=== PATIENT | male | born 1960 | race Caucasian/White ===

== ENCOUNTER → 2018-12-05 | Day surgery (SDC) | payer OTHER ==
[~2018-12-05] MED LIST: FENTANYL CITRATE/PF 100MCG/2 ML INJ ONE; HYOSCYAMINE SULFATE 0.5 MG/ML INJ ONE; METOCLOPRAMIDE HCL 10 MG/2ML VIAL ONE; MIDAZOLAM HCL 2 MG/2 ML VIAL ONE; PROPOFOL IV EMULSION 10 MG/ML 20 ML VIAL ONE; PROPOFOL IV EMULSION 10 MG/ML 50 ML VIAL ONE
[2018-12-05 12:20] VITALS: BP 129/91
--- NOTE | 2018-12-05 14:04 | Operative Report ---
DATE OF PROCEDURE: 12/05/2018 SURGEON: Kem Pathak MD PROCEDURES: Esophagogastroduodenoscopy with biopsies and colonoscopy with polypectomy and biopsies. INDICATIONS FOR EGD: History of heartburn, indigestion, bloating. INDICATIONS FOR COLONOSCOPY: Surveillance colonoscopy, personal history of colon polyps. MEDICATIONS: The patient was done under MAC, please see anesthesiologist's note. PROCEDURE IN DETAIL: With the patient in left lateral decubitus position, a flexible fiberoptic Olympus gastroscope was introduced into the esophagus under direct visualization without any difficulty. There was some patchy erythema noted in distal esophagus. An erosion was noted in the distal esophagus. The scope was then advanced with ease into the stomach traversing a small hiatal hernia. Mucosa overlying the antrum and the body revealed some patchy erythema and low-grade to moderate edema and biopsies were obtained, sent to stain for H pylori. The pylorus was intubated with ease and the scope was advanced all the way to the second portion of the duodenum. The scope was then withdrawn slowly, mucosa overlying the proximal second portion and the duodenal bulb grossly appeared to be within normal limits. Biopsies were obtained to rule out sprue. The scope was then withdrawn back into the stomach and retroflexed. Mucosa overlying the fundus appeared to be within normal limits. The previously described hiatal hernia was also noted in the retroflexed position. The scope was then straightened out, it was subsequently withdrawn. The patient tolerated the procedure well. IMPRESSION: 1. Distal erosive esophagitis. 2. Small hiatal hernia. 3. Gastritis, biopsied. Biopsies sent to stain for Helicobacter pylori. 4. Rule out sprue. PLAN: Follow up histology. Initiate Protonix 40 mg one p.o. q.a.m. a.c. PROCEDURE IN DETAIL: The patient was then turned around after adequate lubrication of the anal canal, flexible fiberoptic Olympus colonoscope was inserted into the rectum with ease and advanced all the way to the cecum. The scope was then withdrawn slowly. Mucosa overlying the cecum appeared to be within normal limits. One polyp was hot biopsied, one polyp was snared from the ascending colon. Polypectomy site was hemoclipped. The rest of the ascending and the transverse appeared to be within normal limits. One polyp was snared from the descending colon. Diverticular disease was noted in the distal descending and the sigmoid colon. Three polyps were hot biopsied from the sigmoid. The rectum appeared to be within normal limits. The scope was then retroflexed into the distal rectum and small internal hemorrhoids were noted, none of which was actively bleeding. The scope was then straightened out. The scope was subsequently withdrawn. The patient tolerated the procedure well. IMPRESSION: 1. Ascending colon polyp x2, one snared, one hot biopsied, polypectomy site hemoclipped. 2. Descending colon polyp, snared. 3. Diverticulosis. 4. Segmental colitis, mild, sigmoid colon, biopsied (not mentioned in the body of the report). 5. Sigmoid colon polyps x3, hot biopsied. 6. Internal hemorrhoids, none actively bleeding. PLAN: Follow up histology. Initiate high-fiber, low-fat diet. Initiate high-fiber supplement. The patient might benefit from a followup colonoscopy in 3 years. Kem Pathak MD [facility] [place]/[facility] /[id number] cc: Jordin Hernandez MD
--- OUTSIDE RECORDS SUMMARY | 2018-12-06 09:20 | XMS REPORT | Summary of Care ---
Author Author [facility] Organization [facility] Address Unknown Phone Unavailable Encounter VAHID Raza(ASHWINI) [id number] Date(s): 04/02/15 - 04/02/15 [id number] [place] [address]- Discharge Disposition: Home Attending Physician: Pedro Churchill MD Admitting Physician: Pedro Churchill MD Referring Physician: Pedro Churchill MD Vital Signs 1 2 3 Most recent to oldest [Reference Range]: 172.72 cm (03/25/15 4:07 PM) 172.72 cm (03/25/15 3:50 PM) Height 1 2 3 Most recent to oldest [Reference Range]: 98.1 DegF (04/03/15 8:00 AM) 98.1 DegF (04/03/15 5:10 AM) 98.2 DegF (04/03/15 12:39 AM) Temperature Oral [96.4-99.1 DegF] 1 2 3 Most recent to oldest [Reference Range]: 108/70 mmHg (04/03/15 8:00 AM) 110/67 mmHg (04/03/15 5:10 AM) 103/64 mmHg (04/03/15 12:39 AM) Blood Pressure [90-140/60-90 mmHg] 1 2 3 Most recent to oldest [Reference Range]: 16 BRMIN (04/03/15 8:00 AM) 18 BRMIN (04/03/15 5:10 AM) 12 BRMIN *LOW* (04/03/15 4:38 AM) Respiratory Rate [14-20 BRMIN] 1 2 3 Most recent to oldest [Reference Range]: 66 bpm (04/03/15 8:00 AM) 71 bpm (04/03/15 5:10 AM) 68 bpm (04/03/15 12:39 AM) Peripheral Pulse Rate [60-100 bpm] 1 2 3 Most recent to oldest [Reference Range]: 85.455 kg (03/25/15 4:07 PM) 85.455 kg (03/25/15 3:50 PM) Weight 1 2 3 Most recent to oldest [Reference Range]: 28.65 m2 (03/25/15 4:07 PM) 28.65 m2 (03/25/15 3:50 PM) Body Mass Index Problem List Condition Effective Dates Status Health Status Informant Localized Active osteoarthritis(Confi rmed)1 1hip - right. Allergies, Adverse Reactions, Alerts Substance Reaction Severity Status NKDA Active Medications 1/2 NS 1,000 mL 1,000 mL, Rate: 75 ml/hr, Infuse over: 13.3 hr, Route: IV, Dosing Weight 85.455 kg, Total Volume: 1,000, Start date: 04/02/15 6:39:00, Duration: 30 day, Stop da te: 05/02/15 6:38:00 Start Date: 04/02/15 Stop Date: 04/03/15 Status: Discontinued acetaminophen 1,000 mg, 100 mL, Route: IVPB, Drug form: INJ, Q6H, Dosing Weight 85.455, kg, St art date: 04/02/15 15:30:00, Stop date: 04/03/15 9:30:00 Notes: Infuse over 15 minutesDo not exceed 4gm/day of acetaminophen MEDICAT ION WASTE Product Size: 1000 mgProduct Wasted: ___ mg Start Date: 04/02/15 Stop Date: 04/03/15 Status: Completed acetaminophen 1,000 mg, 2 tab, Route: PO, Drug form: TAB, Q6H, PRN Pain 1-3/Temp > 100.4 F, Start date: 04/03/15 8:30:00, Duration: 30 day, Stop date: 05/03/15 8:29:00 Notes: Max acetaminophen 4000 mg/day (4 gm/day). (Same as: Tylenol Extra Streng th) Start Date: 04/03/15 Stop Date: 04/03/15 Status: Discontinued Al hydroxide/Mg hydroxide/simethicone 200 mg-200 mg-20 mg/5 mL oral suspension 30 mL, Route: PO, Drug Form: SUSP, Dosing Weight 85.455, kg, Q4H, PRN Indigestio n, Start date: 04/02/15 6:39:00, Duration: 30 day, Stop date: 05/02/15 6:38:00 Notes: (aluminum hydroxide-magnesium hyd-simethicone [phone]/5ml 30 ml ud S US) Start Date: 04/02/15 Stop Date: 04/03/15 Status: Discontinued albuterol 0.083% inhalation solution 2.49 mg, 3 mL, Route: NEB, Drug form: SOLN, PRN, Dosing Weight 85.455, kg, PRN R espiratory Protocol, Start date: 04/02/15 10:27:00, Duration: 30 day, Stop date: 05/02/15 10:26:00 Notes: SEE RT DOCUMENTATION (Same as: Janelle) Start Date: 04/02/15 Stop Date: 04/02/15 Status: Discontinued aspirin 325 mg, Route: PO, Q12H, Dosing Weight 85.455, kg, For patients with risk of ble eding, Start date: 04/02/15 10:39:00, Duration: 30 day, Stop date: 05/02/15 9:00 :00 Start Date: 04/02/15 Stop Date: 04/02/15 Status: Deleted aspirin 325 mg tablet, enteric coated 325 mg=1 tab, PO, Q12H, 0 Refill(s) Start Date: 04/03/15 Status: Ordered aspirin 325 mg tablet, enteric coated 325 mg, 1 tab, Route: PO, Drug form: ECTAB, Q12H, Dosing Weight 85.455, kg, Star t date: 04/02/15 12:05:00, Duration: 30 day, Stop date: 05/02/15 9:00:00 Notes: (Do Not Crush) Do not crush or chew. Start Date: 04/02/15 Stop Date: 04/03/15 Status: Discontinued atropine 0.2 mg, 0.5 mL, Route: IVP, Drug form: INJ, Q5Min, Dosing Weight 85.455, kg, PRN Other -See Comment, as needed; for symptomatic pulse rate < 80% of mean 50 BPM, Start date: 04/02/15 10:27:00, Duration: 30 day, Stop date: 05/02/15 10:26:00 Notes: MEDICATION WASTE Product Size: 0.4 mgProduct Wasted: ___ mg Start Date: 04/02/15 Stop Date: 04/02/15 Status: Discontinued BD Normal Saline Flush 10 mL, Route: IV, Drug Form: INJ, PRN, PRN Line Flush, Start date: 04/02/15 7:57 :00, Duration: 30 day, Stop date: 05/02/15 7:56:00 Notes: (Same as: BD Posiflush) Start Date: 04/02/15 Stop Date: 04/03/15 Status: Discontinued BD Normal Saline Flush 5 mL, Route: IV, Drug Form: INJ, PRN, PRN Line Flush, Start date: 04/02/15 7:57: 00, Duration: 30 day, Stop date: 05/02/15 7:56:00 Notes: (Same as: BD Posiflush) Start Date: 04/02/15 Stop Date: 04/03/15 Status: Discontinued ceFAZolin 2 gm, 100 mL, Route: IVPB, Drug form: INJ, PRE OP, Start date: 04/02/15 6:30:00, Stop date: 04/02/15 23:00:00 Notes: Same as: Ancef Start Date: 04/02/15 Stop Date: 04/02/15 Status: Completed ceFAZolin (SCIP) + Sodium Chloride 0.9% IV 100 mL 1 gm, Route: IVPB, Q6H, Dosing Weight 85.455, kg, Start date: 04/02/15 15:30:00, Duration: 3 doses or times, Stop date: 04/03/15 3:30:00 Notes: (Same As: Ancef, Raulfzol) MEDICATION WASTE Product Size: 1000 mgP roduct Wasted: ___ mg Start Date: 04/02/15 Stop Date: 04/03/15 Status: Completed CeleBREX 400 mg, 2 cap, Route: PO, Drug form: CAP, PRE OP, Start date: 04/02/15 6:30:00, Stop date: 04/02/15 23:00:00 Notes: NSAID. Please check indication. Not for seizure. (Same As: CeleBREX) Start Date: 04/02/15 Stop Date: 04/02/15 Status: Completed CeleBREX 200 mg, 1 cap, Route: PO, Drug form: CAP, Q12H, Start date: 04/03/15 12:00:00, D uration: 30 day, Stop date: 05/03/15 0:00:00 Notes: NSAID. Please check indication. Not for seizure. (Same As: CeleBREX) Start Date: 04/03/15 Stop Date: 04/03/15 Status: Discontinued celecoxib 200 mg, Route: PO, C42Hcth, Dosing Weight 85.455, kg, Start date: 04/02/15 7:00: 00, Duration: 30 day, Stop date: 05/01/15 19:00:00 Start Date: 04/02/15 Stop Date: 04/02/15 Status: Deleted celecoxib 200 mg oral capsule 200 mg=1 cap, PO, Q12H, 0 Refill(s) Start Date: 04/03/15 Stop Date: 04/03/15 Status: Discontinued diphenhydrAMINE 12.5 mg, 0.25 mL, Route: IVP, Drug form: INJ, Q6H, Dosing Weight 85.455, kg, PRN Itching, Start date: 04/02/15 10:27:00, Duration: 30 day, Stop date: 05/02/15 1 0:26:00 Notes: (Same as: Benadryl) Start Date: 04/02/15 Stop Date: 04/02/15 Status: Discontinued docusate 100 mg, 1 cap, Route: PO, Drug form: CAP, BID, Dosing Weight 85.455, kg, Start d ate: 04/02/15 17:00:00, Duration: 30 day, Stop date: 05/02/15 9:00:00 Notes: (Same as: Colace) (Do Not Crush) Start Date: 04/02/15 Stop Date: 04/03/15 Status: Discontinued esmolol IV Push 10 mg, 1 mL, Route: IVP, Drug form: INJ, Q5Min, Dosing Weight 85.455, kg, PRN Ot her -See Comment, Start date: 04/02/15 10:27:00, Duration: 5 doses or times, Sto p date: Limited # of times Notes: (Same as: Brevibloc) Start Date: 04/02/15 Stop Date: 04/02/15 Status: Discontinued flumazenil 0.2 mg, 2 mL, Route: IVP, Drug form: INJ, PRN, Dosing Weight 85.455, kg, PRN Curtis zodiazepine Reversal, Initial dose, Start date: 04/02/15 10:27:00, Duration: 30 day, Stop date: 05/02/15 10:26:00 Notes: (Same as: Romazicon) Start Date: 04/02/15 Stop Date: 04/02/15 Status: Discontinued gabapentin 300 mg, 1 cap, Route: PO, Drug form: CAP, Q8H, Dosing Weight 85.455, kg, Start d ate: 04/02/15 16:00:00, Duration: 30 day, Stop date: 05/02/15 8:00:00 Notes: (Same as: Neurontin) Start Date: 04/02/15 Stop Date: 04/03/15 Status: Discontinued gabapentin 300 mg oral capsule 300 mg=1 cap, PO, Bedtime, # 21 cap, 0 Refill(s), other Start Date: 04/03/15 Status: Ordered glycopyrrolate 0.2 mg, 1 mL, Route: IVP, Drug form: INJ, Q5Min, Dosing Weight 85.455, kg, PRN B radycardia, Start date: 04/02/15 10:27:00, Duration: 3 doses or times, Stop date : Limited # of times Notes: (Same as: Valentina) Start Date: 04/02/15 Stop Date: 04/02/15 Status: Discontinued hydromorphone 0.3 mg, 0.15 mL, Route: IVP, Drug form: INJ, Q4H, Dosing Weight 85.455, kg, PRN Pain Score 7-10, Start date: 04/02/15 6:39:00, Duration: 30 day, Stop date: 04/16 02/27 6:38:00 Notes: (Same as: Dilaudid) Start Date: 04/02/15 Stop Date: 04/03/15 Status: Discontinued hydromorphone 0.5 mg, 0.25 mL, Route: IVP, Drug form: INJ, Q5Min, Dosing Weight 85.455, kg, MI N Pain Score 7-10, Start date: 04/02/15 10:27:00, Duration: 4 doses or times, St op date: Limited # of times Notes: (Same as: Dilaudid) Start Date: 04/02/15 Stop Date: 04/02/15 Status: Discontinued hydrOXYzine 25 mg, 1 tab, Route: PO, Drug form: TAB, Q6H, Dosing Weight 85.455, kg, PRN Itch ing, Start date: 04/02/15 6:39:00, Duration: 30 day, Stop date: 05/02/15 6:38:00 Notes: (Same as: Atarax) Avoid alcohol. Start Date: 04/02/15 Stop Date: 04/03/15 Status: Discontinued ketOROLAC 30 mg, 1 mL, Route: IVP, Drug form: INJ, Q6H, Dosing Weight 85.455, kg, Start da te: 04/02/15 12:05:00, Duration: 4 doses or times, Stop date: 04/03/15 6:00:00 Notes: (Same as:Toradol) IV bolus must be given >15 seconds. Give IM administration slowly and deeply into the muscle.Not for use > 4 days MEDICATION WASTE Product Size: 30 mgProduct Wasted: ___ mg Start Date: 04/02/15 Stop Date: 04/03/15 Status: Completed meloxicam 15 mg oral tablet 15 mg=1 tab, PO, Daily, # 30 tab, 0 Refill(s), other Start Date: 04/03/15 Status: Ordered methocarbamol 1,000 mg, 2 tab, Route: PO, Drug form: TAB, Q8H, Dosing Weight 85.455, kg, PRN M uscle Spasms, Start date: 04/02/15 6:39:00, Duration: 30 day, Stop date: 5 6:38:00 Notes: (Same as:Robaxin) Start Date: 04/02/15 Stop Date: 04/03/15 Status: Discontinued morphine Sulfate 2 mg, 0.2 mL, Route: IVP, Drug form: INJ, Q5Min, Dosing Weight 85.455, kg, PRN P ain Score 4-6, Start date: 04/02/15 10:27:00, Duration: 5 doses or times, Stop d ate: Limited # of times Notes: (Same as:MORPhine Sulfate) Start Date: 04/02/15 Stop Date: 04/02/15 Status: Discontinued mupirocin topical 1 appl, Route: NASAL, Q12H, Drug form: OINT, Start date: 04/02/15 21:00:00, Dura tion: 30 day, Stop date: 05/02/15 9:00:00 Start Date: 04/02/15 Stop Date: 04/03/15 Status: Discontinued naloxone 0.04 mg, 0.1 mL, Route: IVP, Drug form: INJ, Q2MIN, Dosing Weight 85.455, kg, MI N Narcotic Reversal, Start date: 04/02/15 10:27:00, Duration: 8 doses or times, Stop date: Limited # of times Notes: Same as Narcan Start Date: 04/02/15 Stop Date: 04/02/15 Status: Discontinued Neurontin 300 mg, 1 cap, Route: PO, Drug form: CAP, PRE OP, Start date: 04/02/15 6:30:00, Stop date: 04/02/15 23:00:00 Notes: (Same as: Neurontin) Start Date: 04/02/15 Stop Date: 04/02/15 Status: Completed Larue 10/325 oral tablet 1-2 tab, PO, Q4-6H, PRN Pain, X 14 day, # 90 tab, 0 Refill(s), other Start Date: 04/03/15 Stop Date: 04/17/15 Status: Ordered Ofirmev 1,000 mg, 100 mL, Route: IV, PRE OP, Start date: 04/02/15 6:30:00, Stop date: 23:00:00 Notes: Infuse over 15 minutesDo not exceed 4gm/day of acetaminophen MEDICAT ION WASTE Product Size: 1000 mgProduct Wasted: ___ mg Start Date: 04/02/15 Stop Date: 04/03/15 Status: Discontinued ondansetron 4 mg, 2 mL, Route: IVP, Drug form: INJ, Q8H, Dosing Weight 85.455, kg, PRN Nause a & Vomiting, Start date: 04/02/15 6:39:00, Duration: 30 day, Stop date: 05/02/15 6:38:00 Notes: (Same as: Isidro) MEDICATION WASTE Product Size: 4 mgProduct Was sofiya: ___ mg Start Date: 04/02/15 Stop Date: 04/03/15 Status: Discontinued ondansetron 4 mg, 2 mL, Route: IVP, Drug form: INJ, ONCE, Dosing Weight 85.455, kg, PRN Naus ea & Vomiting, Start date: 04/02/15 10:27:00 Notes: (Same as: Isidro) MEDICATION WASTE Product Size: 4 mgProduct Was sofiya: ___ mg Start Date: 04/02/15 Stop Date: 04/02/15 Status: Discontinued oxyCODONE 5 mg immediate release 10 mg, 2 tab, Route: PO, Drug form: TAB, Q4H, Dosing Weight 85.455, kg, PRN Pain Score 7-10, Start date: 04/02/15 6:39:00, Duration: 30 day, Stop date: 05/02/15 6:38:00 Notes: (Same as: Roxicodone) Start Date: 04/02/15 Stop Date: 04/03/15 Status: Discontinued oxyCODONE 5 mg immediate release 5 mg, 1 tab, Route: PO, Drug form: TAB, Q4H, Dosing Weight 85.455, kg, PRN Pain Score 4-6, Start date: 04/02/15 6:39:00, Duration: 30 day, Stop date: 05/02/15 6 :38:00 Notes: (Same as: Roxicodone) Start Date: 04/02/15 Stop Date: 04/03/15 Status: Discontinued Pepcid 20 mg, 1 tab, Route: PO, Drug form: TAB, PRE OP, Start date: 04/02/15 6:30:00, S top date: 04/02/15 23:00:00 Notes: (Same as: Pepcid) Start Date: 04/02/15 Stop Date: 04/02/15 Status: Completed Pepcid 20 mg oral tablet 20 mg, 1 tab, Route: PO, Drug form: TAB, Q12H, Dosing Weight 85.455, kg, Start d ate: 04/02/15 21:00:00, Duration: 30 day, Stop date: 05/02/15 9:00:00 Notes: (Same as: Pepcid) Start Date: 04/02/15 Stop Date: 04/03/15 Status: Discontinued polyethylene glycol 3350 17 gm, 1 pkt, Route: PO, Drug form: PWDR, Daily, Dosing Weight 85.455, kg, Start date: 04/02/15 17:00:00, Duration: 30 day, Stop date: 05/02/15 9:00:00 Notes: Dissolve in 8 oz of water or juice.(Same as: Miralax) Start Date: 04/02/15 Stop Date: 04/03/15 Status: Discontinued Reglan 10 mg, 1 tab, Route: PO, Drug form: TAB, PRE OP, Start date: 04/02/15 6:30:00, S top date: 04/02/15 23:00:00 Notes: (Same as: Reglan) Take 30 min before meals Start Date: 04/02/15 Stop Date: 04/02/15 Status: Completed Reglan 10 mg oral tablet 10 mg, 1 tab, Route: PO, Drug form: TAB, Before Meals & Bedtime, Dosing Weight 85.455, kg, Start date: 04/02/15 11:30:00, Duration: 30 day, Stop date: 05/02/15 7:30:00 Notes: (Same as: Reglan) Take 30 min before meals Start Date: 04/02/15 Stop Date: 04/03/15 Status: Discontinued Sodium Chloride 0.9% IV 25 mL, Route: IV, Start date: 04/02/15 7:57:00, Duration: 30 day, Stop date: 7:56:00, PRN Line Flush Start Date: 04/02/15 Stop Date: 04/03/15 Status: Discontinued tramadol 50 mg, 1 tab, Route: PO, Drug form: TAB, Q6H, Dosing Weight 85.455, kg, Start da te: 04/02/15 12:06:00, Duration: 30 day, Stop date: 05/02/15 12:00:00 Notes: Not to exceed 400mg/day. (Same As: Ultram) Start Date: 04/02/15 Stop Date: 04/03/15 Status: Discontinued tranexamic acid 1 gm, Route: IVPB, Drug form: SOLN, ONCE, Dosing Weight 85.455, kg, Start date: 04/02/15 10:55:00, Stop date: 04/02/15 10:55:00 Start Date: 04/02/15 Stop Date: 04/02/15 Status: Completed tranexamic acid 1 gm, Route: IVPB, Drug form: SOLN, ONCE, Dosing Weight 85.455, kg, Start date: 04/02/15 10:55:00, Stop date: 04/02/15 10:55:00 Start Date: 04/02/15 Stop Date: 04/02/15 Status: Completed trazodone 50 mg, 1 tab, Route: PO, Drug form: TAB, Bedtime, Dosing Weight 85.455, kg, PRN Insomnia, Start date: 04/02/15 6:39:00, Duration: 30 day, Stop date: 05/02/15 6: 38:00 Notes: (Same As: Mathew) Start Date: 04/02/15 Stop Date: 04/03/15 Status: Discontinued vancomycin 1.25 gm, 250 mL, Route: IVPB, Drug form: INJ, PRE OP, Start date: 04/02/15 6:30: 00, Stop date: 04/02/15 23:00:00 Notes: TIME CRITICAL MEDICATIONSame as: Vancocin-NS (premixed)Infusion rate< 1000 mg: infuse over 1 [id number] - 1500 mg: infuse over 1.5 [id number] - 2000 mg: infuse over 2 hours> 2001 mg: infuse over 2.5 hours Start Date: 04/02/15 Stop Date: 04/02/15 Status: Completed vancomycin (SCIP) 1 gm, 200 mL, Route: IVPB, Drug form: INJ, Q12H, Dosing Weight 85.455, kg, Time Critical Medication, Start date: 04/02/15 20:30:00, Duration: 2 doses or times, Stop date: 04/03/15 8:30:00, Pharmacy to adjust dose for renal function Special Instructions: Pharmacy to adjust dose for renal function Notes: TIME CRITICAL MEDICATION Start Date: 04/02/15 Stop Date: 04/03/15 Status: Completed Zofran 4 mg, 2 mL, Route: IVP, Drug form: INJ, PRE OP, Start date: 04/02/15 6:30:00, St op date: 04/02/15 23:00:00 Notes: (Same as: Zofran) MEDICATION WASTE Product Size: 4 mgProduct Was sofiya: ___ mg Start Date: 04/02/15 Stop Date: 04/02/15 Status: Completed Results BLOOD BANK RESULTS Most recent to 1 2 oldest [Reference Range]: ABO/Rh O NEG *Unknown* (04/02/15 8:30 AM) Antibody Scrn Negative (04/02/15 8:30 AM) ELECTROLYTES Most recent to 1 2 oldest [Reference Range]: Sodium Lvl [135-145 143 mEq/L mEq/L] (04/03/15 3:40 AM) Potassium Lvl 4.2 mEq/L [3.5-5.1 mEq/L] (04/03/15 3:40 AM) Chloride Lvl [95-109 110 mEq/L mEq/L] *HI* (04/03/15 3:40 AM) CO2 [24-32 mEq/L] 30 mEq/L (04/03/15 3:40 AM) AGAP [10.0-20.0 7.2 mEq/L mEq/L] *LOW* (04/03/15 3:40 AM) CHEM PANEL Most recent to 1 2 oldest [Reference Range]: Creatinine Lvl 1.2 mg/dL [0.5-1.4 mg/dL] (04/03/15 3:40 AM) eGFR 67 mL/min/1.73m2 1 *NA* (04/03/15 3:40 AM) BUN [7-22 mg/dL] 17 mg/dL (04/03/15 3:40 AM) Glucose Lvl [70-99 93 mg/dL 87 mg/dL mg/dL] (04/03/15 3:40 AM) (03/25/15 4:42 PM) Calcium Lvl 7.5 mg/dL [8.5-10.5 mg/dL] *LOW* (04/03/15 3:40 AM) 1Result Comment: The eGFR is calculated using the CKD-EPI formula. In most young, healthy individuals the eGFR will be >90 mL/min/1.73m2. The eGFR declines with age. An eGFR of 60-89 may be normal in some populations, particularly the elderly, for whom the CKD-EPI formula has not been extensively validated. Use of the eGFR is not recommended in the following populations: Individuals with unstable creatinine concentrations, including patients and those with serious co-morbid conditions. Patients with extremes in muscle mass or diet. The data above are obtained from the National Kidney Disease Education Program ( NKDEP) which additionally recommends that when the eGFR is used in patients with extremes of body mass index for purposes of drug dosing, the eGFR should be mul tiplied by the estimated BMI. IMMUNOLOGY Most recent to 1 2 oldest [Reference Range]: HIV 1/2 Ab Negative [Negative] *NA* (03/25/15 4:42 PM) Hep C Ab Negative *NA* (03/25/15 4:42 PM) HEMATOLOGY Most recent to 1 2 oldest [Reference Range]: WBC [3.7-10.4 K/CMM] 10.1 K/CMM (04/03/15 3:40 AM) RBC [4.70-6.10 4.20 M/CMM M/CMM] *LOW* (04/03/15 3:40 AM) Hgb [14.0-18.0 g/dL] 12.5 g/dL 15.4 g/dL *LOW* (03/25/15 4:42 PM) (04/03/15 3:40 AM) Hct [42.0-54.0 %] 38.1 % 48.3 % *LOW* (03/25/15 4:42 PM) (04/03/15 3:40 AM) MCV [80.0-94.0 fL] 90.9 fL (04/03/15 3:40 AM) MCH [27.0-31.0 pg] 29.8 pg (04/03/15 3:40 AM) MCHC [32.0-36.0 32.8 g/dL g/dL] (04/03/15 3:40 AM) RDW [11.5-14.5 %] 13.5 % (04/03/15 3:40 AM) Platelet [133-450 191 K/CMM K/CMM] (04/03/15 3:40 AM) MPV [7.4-10.4 fL] 8.8 fL (04/03/15 3:40 AM) Segs [45.0-75.0 %] 69.4 % (04/03/15 3:40 AM) Lymphocytes 22.0 % [20.0-40.0 %] (04/03/15 3:40 AM) Monocytes [2.0-12.0 6.4 % %] (04/03/15 3:40 AM) Eosinophils [0.0-4.0 1.8 % %] (04/03/15 3:40 AM) Basophils [0.0-1.0 0.4 % %] (04/03/15 3:40 AM) Segs-Bands # 7.0 K/CMM [1.5-8.1 K/CMM] (04/03/15 3:40 AM) Lymphocytes # 2.2 K/CMM [1.0-5.5 K/CMM] (04/03/15 3:40 AM) Monocytes # [0.0-0.8 0.6 K/CMM K/CMM] (04/03/15 3:40 AM) Eosinophils # 0.2 K/CMM [0.0-0.5 K/CMM] (04/03/15 3:40 AM) BACTERIAL - SEROLOGY Most recent to 1 2 oldest [Reference Range]: MRSA by PCR Negative (03/25/15 4:30 PM) Immunizations No data available for this section Procedures No data available for this section Social History Social History Type Response Alcohol Never Smoking Status Former smoker; Exposure to Tobacco Smoke None; Cigarette Smoking Last 365 Days No; Reg Smoking Cessation Counseling No Assessment and Plan Extracted from: Title: Clinical Document Author: Pedro Churchill MD Date: 04/03/15 The patient was admitted on the same day as elective joint replacement surgery, which was performed without complication. Postoperatively the patient has done well and has hit all of the milestones necessary for discharge. The patient has good pain control on oral analgesics. There has not been significant nausea or vomiting. The patient has cleared physical therapy and is independent for discharge home. Reviewing the patient s laboratory work, including complete blood count and basic metabolic panel, there is no contraindication to discharge. Home health and physical therapy has been arranged as needed. At the preoperative office visit the patient was given prescriptions for pain medication, anti-emetic medications and deep venous thrombosis prophylaxis. In addition, instructions were provided for postoperative exercises, wound care and an appointment was made for follow up. The patient was instructed to call my office with any questions or concerns at [phone]. Pedro Churchill MD, FAAOS Extracted from: Title: Clinical Document Author: Desi Bernard PA-C Date: 03/31/15 Patient name: MADAI ROBBINS : 1960 Date o/f Surgery: 04/02/2015 History and Physical Chief Complaint: Right hip pain History of Present Illness: 54 year old male with persistent right hip pain due to osteoarthritis. The pain significantly interferes with the patient's ability to perform activities of daily living. The patient has failed an exhaustive course of conservative therapy and desires surgical intervention. Past Medical History: Allergies: NKDA Surgery: none reported Medical illness: osteoarthritis Medications: none reported Habits: Smoking: none EtOH: none Other: Vital Signs: Ht: 68in Wt: 205lb BMI:31 Review Of Systems: Nervous Endocrine Skin: denies rash and infection Cardiovascular: denies chest pain Hematology/Coagulation: denies bleeding abnormalities Urinary: Genital Metabolic Musculoskeletal: right hip pain, restricted range of motion GI / Alimentary Respiratory: denies shortness of breath Infection: denies fever and chills Physical Exam: General: Alert and oriented. No acute distress. Gait: abductor lurch and limp HEENT: Normocephalic and atraumatic. No mass or deformity. Cardiovascular: Regular rate and rhythm, no murmur or gallop. Lungs: Clear to auscultation bilaterally Abdomen: Extremities: right hip exam reveals significant tenderness over the anterior capsule with palpation. Flexion is limited to 90 degrees. internal rotation is locked at a 10 degree contracture and there is only 20 degrees of external rotation. Pain and crepitus is produced with motion. Neurological: Intact Problems: 1. Right hip pain 2. Right hip osteoarthritis Treatment Plan: Right total hip arthroplasty Post operative medications: celebrex, norco, aspirin and gabapentin
--- OUTSIDE RECORDS SUMMARY | 2018-12-06 09:20 | XMS REPORT | Summary of Care ---
Author Author [facility] Organization [facility] Address Unknown Phone Unavailable Encounter [facility](FIN) [id number] Date(s): 04/28/18 - 04/28/18 [id number] [place] [address]- Encounter Diagnosis Encounter for preprocedural cardiovascular examination (Final) - 05/04/18 Discharge Disposition: Home or Self Care Attending Physician: Yao Delacruz MD Referring Physician: Yao Delacruz MD Vital Signs No data available for this section Problem List Condition Effective Dates Status Health Status Informant BPH with urinary Active obstruction(Confirme d) Localized Active osteoarthritis(Confi rmed)1 Elevated Active PSA(Confirmed) Simple Active obesity(Confirmed) 1hip - right. Allergies, Adverse Reactions, Alerts Substance Reaction Severity Status NKDA Active Medications No data available for this section Results No data available for this section Immunizations No data available for this section Procedures Procedure Date Related Diagnosis Body Site Status Hip1 Completed Procedure on prostate2 Completed 1rt hip 2016 2urolift Social History Social History Type Response Substance Abuse Use: None. Sexual Sexually active: Yes. Alcohol Never Smoking Status Former smoker; Type: Cigarettes; Exposure to Tobacco Smoke None; Cigarette Smoking Last 365 Days No; Reg Smoking Cessation Counseling No entered on: 07/14/18 Assessment and Plan No data available for this section
--- OUTSIDE RECORDS SUMMARY | 2018-12-06 09:20 | XMS REPORT | Summary of Care ---
Author Author [facility] Urology [facility] Organization [facility] Address Unknown Phone Unavailable Encounter HQ Latricentr_alimarc(FIN) [phone] Date(s): 03/24/18 - 03/24/18 [facility] [address] [place] [id number] [phone] Discharge Disposition: Home or Self Care Attending Physician: Gabe Todd MD Vital Signs No data available for [...] Procedure Date Related Diagnosis Body Site Status Cystourethroscopy (separate procedure) 03/24/18 Completed Hip1 Completed Procedure on prostate2 Completed 1rt [...]
--- OUTSIDE RECORDS SUMMARY | 2018-12-06 09:20 | XMS REPORT | Summary of Care ---
Author Author [facility] Urology [facility] Organization [facility] Address Unknown Phone Unavailable Encounter HQ Deborah_mariposa(FIN) [phone] Date(s): 05/18/18 - 05/18/18 [facility] [address] [place] [address]- Attending Physician: Gabe Todd MD Vital Signs [...]
--- OUTSIDE RECORDS SUMMARY | 2018-12-06 09:20 | XMS REPORT | Summary of Care ---
Author Author [facility] Urology [facility] Organization [facility] Address Unknown Phone Unavailable Encounter HQ Ry(FIN) [phone] Date(s): 12/08/17 - 12/08/17 [facility] U[facility] [address] [place], [place] [address] Discharge Disposition: Home or Self Care Attending Physician: Pedro Salcedo MD Vital Signs Most recent to 1 oldest [Reference Range]: Height 172.72 cm (12/08/17 2:11 PM) Temperature Oral 98.0 DegF [96.4-99.1 DegF] (12/08/17 2:11 PM) Blood Pressure 148/98 mmHg [90-140/60-90 mmHg] *HI* (12/08/17 2:11 PM) Respiratory Rate 16 BRMIN [14-20 BRMIN] (12/08/17 2:11 PM) Peripheral Pulse 96 bpm Rate [60-100 bpm] (12/08/17 2:11 PM) Weight 90.909 kg (12/08/17 2:11 PM) Body Mass Index 30.47 m2 (12/08/17 2:11 PM) Problem List Condition Effective Dates Status Health Status Informant 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 Allergies, Adverse Reactions, Alerts Substance Reaction Severity Status NKDA Active Medications tamsulosin 0.4 mg oral capsule 0.4 mg=1 cap, PO, Daily, # 30 cap, 0 Refill(s) Start Date: 12/08/17 Status: Ordered Results No data available for this section Immunizations No data available for this section Procedures Procedure Date Related Diagnosis Body Site Status Measurement of post-voiding residual urine 12/08/17 Completed and/or bladder capacity by ultrasound, non-imaging Hip1 Completed 1rt hip 2016 Social History Social History Type Response Substance Abuse Use: None. Sexual Sexually active: Yes. Alcohol Never Smoking Status Former smoker; Type: Cigarettes; Exposure to Tobacco Smoke None; Cigarette Smoking Last 365 Days No; Reg Smoking Cessation Counseling No entered on: 12/08/17 Assessment and Plan No data available for this section
--- OUTSIDE RECORDS SUMMARY | 2018-12-06 09:20 | XMS REPORT | Summary of Care ---
Author Author [facility] U[facility] Organization [facility] Address Unknown Phone Unavailable Encounter HQ Latricentr_alimarc(FIN) [phone] Date(s): 03/24/18 - 03/24/18 [facility] [address] [place] [id number] [phone] Vital Signs No data available for this [...]
--- OUTSIDE RECORDS SUMMARY | 2018-12-06 09:20 | XMS REPORT | Continuity of Care Document ---
Author Author [facility] Interface Address Unknown Phone Unavailable Problems Problem Status Onset Date Classification Date Reported Comments Source Encounter for preprocedural cardiovascular examination 05/05/2018 11/15/2018 [facility] Z01.810 Active 04/22/2018 [facility] Benign prostatic hyperplasia with lower urinary tract symptoms 04/20/2018 10/31/2018 DIANNE Romero N40.1 - ENLARGED PROSTATE WITH LOWER U R Active 03/28/2018 [facility] [place] [id number], RIGHT HIP PAIN AND HIP OSTEOARTHR Active 02/25/2015 [facility] BPH with urinary obstruction Active Problem 12/05/2018 [facility] Heather Localized osteoarthritis<sup>1</sup> Active Problem 12/05/2018 hip - right. [facility] Elevated PSA Active Problem 12/05/2018 [facility] Simple obesity Active Problem 12/05/2018 [facility] Elevated prostate specific antigen [PSA] 10/31/2018 [facility] Chronic prostatitis 10/31/2018 [facility] Other obstructive and reflux uropathy 10/31/2018 [facility] Presence of right artificial hip joint 10/31/2018 [facility] ADMINISTRTVE ENCOUNT NOS Active [facility] Medications Medication Details Route Status Patient Instructions Ordering Provider Order Date Source Ciprofloxacin 250 MG Oral Tablet [Cipro] 250 mg=1 tab, PO, Q12H, for UTI, X 3 day, # 6 tab, 0 Refill(s), Pharmacy: [facility] Active 02/24/2018 [facility] Ciprofloxacin 250 MG Oral Tablet [Cipro] 250 mg=1 tab, PO, Q12H, for UTI, X 3 day, # 6 tab, 0 Refill(s) Inactive 02/24/2018 [facility] tamsulosin 0.4 mg oral capsule 0.4 mg=1 cap, PO, Daily, # 30 cap, 11 Refill(s), Pharmacy: [facility] Active 02/24/2018 [facility] Levofloxacin 500 MG Oral Tablet [Levaquin] 500 mg=1 tab, PO, Q24H, start one day before your prostate biopsy, X 3 day, # 3 tab, 0 Refill(s), Pharmacy: [facility] Active 12/31/2017 [facility] tamsulosin 0.4 mg oral capsule 0.4 mg=1 cap, PO, Daily, # 30 cap, 0 Refill(s) Active 12/08/2017 [facility] CeleBREX 200 mg, 1 cap, Route: PO, Drug form: CAP, Q12H, Start date: 04/03/15 12:00:00, Duration: 30 day, Stop date: 05/03/15 0:00:00Notes: NSAID. Please check indication. Not for seizure. (Same As: CeleBREX) Inactive 04/03/2015 [facility] meloxicam 15 mg oral tablet 15 mg=1 tab, PO, Daily, # 30 tab, 0 Refill(s), other Active 04/03/2015 [facility] Aspirin 325 MG Enteric Coated Tablet 325 mg=1 tab, PO, Q12H, 0 Refill(s) Active 04/03/2015 [facility] gabapentin 300 MG Oral Capsule 300 mg=1 cap, PO, Bedtime, # 21 cap, 0 Refill(s), other Active 04/03/2015 [facility] Acetaminophen 325 MG / Hydrocodone Bitartrate 10 MG Oral Tablet [Campo 10/325] 1-2 tab, PO, Q4-6H, PRN Pain, X 14 day, # 90 tab, 0 Refill(s), other Active 04/03/2015 [facility] celecoxib 200 mg oral capsule 200 mg=1 cap, PO, Q12H, 0 Refill(s) Inactive 04/03/2015 [facility] acetaminophen 1,000 mg, 2 tab, Route: PO, Drug form: TAB, Q6H, PRN Pain 1-3/Temp > 100.4 F, Start date: 04/03/15 8:30:00, Duration: 30 day, Stop date: 05/03/15 8:29:00Notes: Max acetaminophen 4000 mg/day (4 gm/day). (Same as: Tylenol Extra Strength) Inactive 04/03/2015 [facility] Famotidine 20 MG Oral Tablet [Pepcid] 20 mg, 1 tab, Route: PO, Drug form: TAB, Q12H, Dosing Weight 85.455, kg, Start date: 04/02/15 21:00:00, Duration: 30 day, Stop date: 05/02/15 9:00:00Notes: (Same as: Pepcid) No Longer Active 04/03/2015 [facility] Mupirocin 1 appl, Route: NASAL, Q12H, Drug form: OINT, Start date: 04/02/15 21:00:00, Duration: 30 day, Stop date: 05/02/15 9:00:00 No Longer Active 04/03/2015 [facility] Vancomycin 6.67 MG/ML Injectable Solution 1 gm, 200 mL, Route: IVPB, Drug form: INJ, Q12H, Dosing Weight 85.455, kg, Time Critical Medication, Start date: 04/02/15 20:30:00, Duration: 2 doses or times, Stop date: 04/03/15 8:30:00, Pharmacy to adjust dose for renal functionSpecial Instructions: Pharmacy to adjust dose for renal functionNotes: TIME CRITICAL MEDICATION No Longer Active 04/03/2015 [facility] POLYETHYLENE GLYCOL 3350 17 gm, 1 pkt, Route: PO, Drug form: PWDR, Daily, Dosing Weight 85.455, kg, Start date: 04/02/15 17:00:00, Duration: 30 day, Stop date: 05/02/15 9:00:00Notes: Dissolve in 8 oz of water or juice. (Same as: Miralax) No Longer Active 04/02/2015 [facility] Docusate 100 mg, 1 cap, Route: PO, Drug form: CAP, BID, Dosing Weight 85.455, kg, Start date: 04/02/15 17:00:00, Duration: 30 day, Stop date: 05/02/15 9:00:00Notes: (Same as: Colace) (Do Not Crush) No Longer Active 04/02/2015 [facility] gabapentin 300 mg, 1 cap, Route: PO, Drug form: CAP, Q8H, Dosing Weight 85.455, kg, Start date: 04/02/15 16:00:00, Duration: 30 day, Stop date: 05/02/15 8:00:00Notes: (Same as: Neurontin) No Longer Active 04/02/2015 [facility] Acetaminophen 1,000 mg, 100 mL, Route: IVPB, Drug form: INJ, Q6H, Dosing Weight 85.455, kg, Start date: 04/02/15 15:30:00, Stop date: 04/03/15 9:30:00Notes: Infuse over 15 minutes Do not exceed 4gm/day of acetami nophen MEDICATION WASTE Product Size: 1000 mg Product Wasted: ___ mg No Longer Active 04/02/2015 [facility] ceFAZolin (SCIP) + Sodium Chloride 0.9% IV 100 mL 1 gm, Route: IVPB, Q6H, Dosing Weight 85.455, kg, Start date: 04/02/15 15:30:00, Duration: 3 doses or times, Stop date: 04/03/15 3:30:00Notes: (Same As: Joycelyn Santana) MEDICATION WASTE Product Size: 1000 mg Product Wasted: ___ mg No Longer Active 04/02/2015 [facility] Tramadol 50 mg, 1 tab, Route: PO, Drug form: TAB, Q6H, Dosing Weight 85.455, kg, Start date: 04/02/15 12:06:00, Duration: 30 day, Stop date: 05/02/15 12:00:00Notes: Not to exceed 400mg/day. (Same As: Ultram) No Longer Active 04/02/2015 [facility] Ketorolac 30 mg, 1 mL, Route: IVP, Drug form: INJ, Q6H, Dosing Weight 85.455, kg, Start date: 04/02/15 12:05:00, Duration: 4 doses or times, Stop date: 04/03/15 6:00:00Notes: (Same as:Toradol) IV bolus must be given >15 seconds. Give IM administration slowly and deeply into the muscle. Not for use > 4 days MEDICATION WASTE Product Size: 30 mg Product Wasted: ___ mg No Longer Active 04/02/2015 [facility] Aspirin 325 MG Enteric Coated Tablet 325 mg, 1 tab, Route: PO, Drug form: ECTAB, Q12H, Dosing Weight 85.455, kg, Start date: 04/02/15 12:05:00, Duration: 30 day, Stop date: 05/02/15 9:00:00Notes: (Do Not Crush) Do not crush or chew. No Longer Active 04/02/2015 [facility] Metoclopramide 10 MG Oral Tablet [Reglan] 10 mg, 1 tab, Route: PO, Drug form: TAB, Before Meals & Bedtime, Dosing Weight 85.455, kg, Start date: 04/02/15 11:30:00, Duration: 30 day, Stop date: 05/02/15 7:30:00Notes: (Same as: Reglan) Take 30 min before meals No Longer Active 04/02/2015 [facility] Tranexamic Acid 1 gm, Route: IVPB, Drug form: SOLN, ONCE, Dosing Weight 85.455, kg, Start date: 04/02/15 10:55:00, Stop date: 04/02/15 10:55:00 Inactive 04/02/2015 [facility] Aspirin 325 mg, Route: PO, Q12H, Dosing Weight 85.455, kg, For patients with risk of bleeding, Start date: 04/02/15 10:39:00, Duration: 30 day, Stop date: 05/02/15 9:00:00 Inactive 04/02/2015 [facility] Albuterol 0.83 MG/ML Inhalant Solution 2.49 mg, 3 mL, Route: NEB, Drug form: SOLN, PRN, Dosing Weight 85.455, kg, PRN Respiratory Protocol, Start date: 04/02/15 10:27:00, Duration: 30 day, Stop date: 05/02/15 10:26:00Notes: SEE RT DOCUMENTATION (Same as: Proventil) Inactive 04/02/2015 [facility] Ondansetron 4 mg, 2 mL, Route: IVP, Drug form: INJ, ONCE, Dosing Weight 85.455, kg, PRN Nausea & Vomiting, Start date: 04/02/15 10:27:00Notes: (Same as: Zofran) MEDICATION WASTE Product Size: 4 mg Product Wasted: ___ mg Inactive 04/02/2015 [facility] Glycopyrrolate 0.2 mg, 1 mL, Route: IVP, Drug form: INJ, Q5Min, Dosing Weight 85.455, kg, PRN Bradycardia, Start date: 04/02/15 10:27:00, Duration: 3 doses or times, Stop date: Limited # of timesNotes: (Same as: Robinul) Inactive 04/02/2015 [facility] esmolol 10 mg, 1 mL, Route: IVP, Drug form: INJ, Q5Min, Dosing Weight 85.455, kg, PRN Other -See Comment, Start date: 04/02/15 10:27:00, Duration: 5 doses or times, Stop date: Limited # of timesNotes: (Same as: Brevibloc) Inactive 04/02/2015 [facility] Diphenhydramine 12.5 mg, 0.25 mL, Route: IVP, Drug form: INJ, Q6H, Dosing Weight 85.455, kg, PRN Itching, Start date: 04/02/15 10:27:00, Duration: 30 day, Stop date: 05/02/15 10:26:00Notes: (Same as: Benadryl) Inactive 04/02/2015 [facility] Atropine 0.2 mg, 0.5 mL, Route: IVP, Drug form: INJ, Q5Min, Dosing Weight 85.455, kg, PRN Other -See Comment, as needed; for symptomatic pulse rate Notes: MEDICATION WASTE Product Size: 0.4 mg Product Wasted: ___ mg Inactive 04/02/2015 [facility] Naloxone 0.04 mg, 0.1 mL, Route: IVP, Drug form: INJ, Q2MIN, Dosing Weight 85.455, kg, PRN Narcotic Reversal, Start date: 04/02/15 10:27:00, Duration: 8 doses or times, Stop date: Limited # of timesNotes: Same as Narcan Inactive 04/02/2015 [facility] Flumazenil 0.2 mg, 2 mL, Route: IVP, Drug form: INJ, PRN, Dosing Weight 85.455, kg, PRN Benzodiazepine Reversal, Initial dose, Start date: 04/02/15 10:27:00, Duration: 30 day, Stop date: 05/02/15 10:26:00Notes: (Same as: Romazicon) Inactive 04/02/2015 [facility] Hydromorphone 0.5 mg, 0.25 mL, Route: IVP, Drug form: INJ, Q5Min, Dosing Weight 85.455, kg, PRN Pain Score 7-10, Start date: 04/02/15 10:27:00, Duration: 4 doses or times, Stop date: Limited # of timesNotes: (Same as: Dilaudid) Inactive 04/02/2015 [facility] Morphine 2 mg, 0.2 mL, Route: IVP, Drug form: INJ, Q5Min, Dosing Weight 85.455, kg, PRN Pain Score 4-6, Start date: 04/02/15 10:27:00, Duration: 5 doses or times, Stop date: Limited # of timesNotes: (Same as: MORPhine Sulfate) Inactive 04/02/2015 [facility] Sodium Chloride 0.9% IV 25 mL, Route: IV, Start date: 04/02/15 7:57:00, Duration: 30 day, Stop date: 05/02/15 7:56:00, PRN Line Flush No Longer Active 04/02/2015 [facility] BD Normal Saline Flush 10 mL, Route: IV, Drug Form: INJ, PRN, PRN Line Flush, Start date: 04/02/15 7:57:00, Duration: 30 day, Stop date: 05/02/15 7:56:00Notes: (Same as: BD Posiflush) No Longer Active 04/02/2015 [facility] celecoxib 200 mg, Route: PO, Q51Vwpi, Dosing Weight 85.455, kg, Start date: 04/02/15 7:00:00, Duration: 30 day, Stop date: 05/01/15 19:00:00 Inactive 04/02/2015 [facility] Al hydroxide/Mg hydroxide/simethicone 200 mg-200 mg-20 mg/5 mL oral suspension 30 mL, Route: PO, Drug Form: SUSP, Dosing Weight 85.455, kg, Q4H, PRN Indigestion, Start date: 04/02/15 6:39:00, Duration: 30 day, Stop date: 05/02/15 6:38:00Notes: (aluminum hydroxide-magnesium hyd-simethicone [phone]/5ml 30 ml ud BETHANY) No Longer Active 04/02/2015 [facility] Hydroxyzine 25 mg, 1 tab, Route: PO, Drug form: TAB, Q6H, Dosing Weight 85.455, kg, PRN Itching, Start date: 04/02/15 6:39:00, Duration: 30 day, Stop date: 05/02/15 6:38:00Notes: (Same as: Atarax) Avoid alcohol. No Longer Active 04/02/2015 [facility] Trazodone 50 mg, 1 tab, Route: PO, Drug form: TAB, Bedtime, Dosing Weight 85.455, kg, PRN Insomnia, Start date: 04/02/15 6:39:00, Duration: 30 day, Stop date: 05/02/15 6:38:00Notes: (Same As: Desyrel) No Longer Active 04/02/2015 [facility] Ondansetron 4 mg, 2 mL, Route: IVP, Drug form: INJ, Q8H, Dosing Weight 85.455, kg, PRN Nausea & Vomiting, Start date: 04/02/15 6:39:00, Duration: 30 day, Stop date: 05/02/15 6:38:00Notes: (Same as: Zofran) MEDICATION WASTE Product Size: 4 mg Product Wasted: ___ mg No Longer Active 04/02/2015 [facility] Methocarbamol 1,000 mg, 2 tab, Route: PO, Drug form: TAB, Q8H, Dosing Weight 85.455, kg, PRN Muscle Spasms, Start date: 04/02/15 6:39:00, Duration: 30 day, Stop date: 05/02/15 6:38:00Notes: (Same as:Robaxin) No Longer Active 04/02/2015 [facility] Hydromorphone 0.3 mg, 0.15 mL, Route: IVP, Drug form: INJ, Q4H, Dosing Weight 85.455, kg, PRN Pain Score 7-10, Start date: 04/02/15 6:39:00, Duration: 30 day, Stop date: 05/02/15 6:38:00Notes: (Same as: Dilaudid) No Longer Active 04/02/2015 [facility] Oxycodone Hydrochloride 5 MG Oral Tablet 10 mg, 2 tab, Route: PO, Drug form: TAB, Q4H, Dosing Weight 85.455, kg, PRN Pain Score 7-10, Start date: 04/02/15 6:39:00, Duration: 30 day, Stop date: 05/02/15 6:38:00Notes: (Same as: Roxicodone) No Longer Active 04/02/2015 [facility] 1/2 NS 1,000 mL 1,000 mL, Rate: 75 ml/hr, Infuse over: 13.3 hr, Route: IV, Dosing Weight 85.455 kg, Total Volume: 1,000, Start date: 04/02/15 6:39:00, Duration: 30 day, Stop date: 05/02/15 6:38:00 No Longer Active 04/02/2015 [facility] Ofirmev 1,000 mg, 100 mL, Route: IV, PRE OP, Start date: 04/02/15 6:30:00, Stop date: 04/02/15 23:00:00Notes: Infuse over 15 minutes Do not exceed 4gm/day of acetaminophen MEDICATION WASTE Product Size: 1000 mg Product Wasted: ___ mg No Longer Active 04/02/2015 [facility] Neurontin 300 mg, 1 cap, Route: PO, Drug form: CAP, PRE OP, Start date: 04/02/15 6:30:00, Stop date: 04/02/15 23:00:00Notes: (Same as: Neurontin) Inactive 04/02/2015 [facility] CeleBREX 400 mg, 2 cap, Route: PO, Drug form: CAP, PRE OP, Start date: 04/02/15 6:30:00, Stop date: 04/02/15 23:00:00Notes: NSAID. Please check indication. Not for seizure. (Same As: CeleBREX) Inactive 04/02/2015 [facility] Zofran 4 mg, 2 mL, Route: IVP, Drug form: INJ, PRE OP, Start date: 04/02/15 6:30:00, Stop date: 04/02/15 23:00:00Notes: (Same as: Zofran) MEDICATION WASTE Product Size: 4 mg Product Wasted: ___ mg Inactive 04/02/2015 [facility] Reglan 10 mg, 1 tab, Route: PO, Drug form: TAB, PRE OP, Start date: 04/02/15 6:30:00, Stop date: 04/02/15 23:00:00Notes: (Same as: Reglan) Take 30 min before meals Inactive 04/02/2015 [facility] Pepcid 20 mg, 1 tab, Route: PO, Drug form: TAB, PRE OP, Start date: 04/02/15 6:30:00, Stop date: 04/02/15 23:00:00Notes: (Same as: Pepcid) Inactive 04/02/2015 [facility] ceFAZolin 2 gm, 100 mL, Route: IVPB, Drug form: INJ, PRE OP, Start date: 04/02/15 6:30:00, Stop date: 04/02/15 23:00:00Notes: Same as: Ancef Inactive 04/02/2015 [facility] vancomycin 1.25 gm, 250 mL, Route: IVPB, Drug form: INJ, PRE OP, Start date: 04/02/15 6:30:00, Stop date: 04/02/15 23:00:00Notes: TIME CRITICAL MEDICATION Same as: Vancocin-NS (premixed) Infusion rate 2001 mg: infuse over 2.5 hours Inactive 04/02/2015 [facility] Allergies, Adverse Reactions, Alerts Substance Category Reaction Severity Reaction type Status Date Reported Comments Source Immunizations Immunization Date Given Site Status Last Updated Comments Source Results Order Name Results Value Reference Range Date Interpretation Comments Source Prostate w/wo contrast MRI Prostate w/wo contrast MRI PROCEDURE: MRI PELVIS (PROSTATE MRI) WITH AND WITHOUT IV CONTRAST 04/13/2018 AT 1420 HOURS. CLINICAL INDICATION : Elevated PSA. BPH with urinary obstruction. PSA: 4.3 ng/mL (Date: December 2017); 4.9 (November 2017) 4k: 10% PROSTATE BIOPSY/SURGERY?: None reported. COMPARISON STUDIES: None relevant. Brief reference is made to the AP pelvis radiograph from 04/02/2015. ADMINISTERED CONTRAST: 20 cc of Dotarem intravenously. TECHNIQUE: Using a phased array coil small [id number] imaging of the prostate was performed using the following sequences; Multiplanar T1 and T2 MARITZA, axial DWI SENSE / ADC (b values=0, 500 \T\1000) and dynamic contrast-enhanced (DCE) axial 3-D T1 weighted FFE with IV contrast. Using a large [id number], the entire pelvis to the level of the aortic bifurcation was imaged. Prostate gland segmentation with region of interest time curve analysis was performed with the use of the workstation. FINDINGS: PROSTATE SIZE: 4.8 x 4.7 x 5 cm; VOLUME: 55 cc CENTRAL GLAND: Transitional stromal hypertrophy with numerous encapsulated BPH nodules. A 1.4 cm left anterior transitional zone BPH nodule shows mild restricted diffusion and no suspicious enhancement. PERIPHERAL ZONE: Predominant T2 hyperintense intense peripheral zone intermixed with faint radial bands of mild T2 hypointensity. No restricted diffusion or suspicious enhancement. Faint non masslike enhancement of the right and left peripheral zone likely relates to mild prostatitis. ANTERIOR FIBROMUSCULAR STROMA: Unremarkable. SEMINAL VESICLES: Unremarkable. EXTRA-CAPSULAR SOFT TISSUES: Unremarkable. BLADDER: Trabeculated wall with no filling defects or diverticula. LYMPH NODES: No adenopathy. BONES: Right hip replacement without visible complication accounting for magnetic susceptibility artifact. Severe facet arthropathy at the lumbosacral junction and moderate bilateral SI joint osteoarthritis. OTHER FINDINGS: No free fluid. No inguinal hernia or adenopathy. IMPRESSION: 1. Prostatic hypertrophy with mild chronic prostatitis and encapsulated BPH nodules. No suspicious lesion. 2. PI-RADS Category 2. 3. Mild chronic obstructive uropathy. 4. Right hip replacement and polyarticular degenerative change. PIRADSTM v2 assessment uses a 5 point scale based on the likelihood (probability) that a combination of mpMRI findings on T2W, DWI, and DCE correlates with the presence of a clinically significant cancer for each lesion in the prostate gland. PIRADSTM v2 ASSESSMENT CATEGORIES: PIRADS 1 Very low (clinically significant cancer is highly unlikely to be present). PIRADS 2 Low (clinically significant cancer is unlikely to be present). PIRADS 3 Intermediate (the presence of clinically significant cancer is equivocal). PIRADS 4 High (clinically significant cancer is likely to be present). PIRADS 5 Very high (clinically significant cancer is highly likely to be present). NOTE: Assignment of a PIRADSTM v2 Assessment Category should be based on mpMRI findings only and should not incorporate other factors such as serum prostate specific antigen (PSA), digital rectal exam, clinical history, or choice of treatment. Although biopsy should be considered for PIRADS 4 or 5, but not for PIRADS 1 or 2, PIRADSTM v2 does not include recommendations for management, as these must take into account other factors besides the MRI findings, including laboratory/clinical history and local preferences, expertise and standards of care. Thus, for findings with PIRADS Assessment Category 2 or 3, biopsy may or may not be appropriate, depending on factors other than mpMRI alone. SL: [id number] 04/13/2018 - - Read by: Lexa Dang MD Dictated Date/time: 04/15/18 08:54 Electronically Signed by: Lexa Dang MD 04/15/18 09:10 FINAL REPORT [facility] Heather ELECTROLYTES AGAP 7.2 meq/L 10.0 - 20.0 04/03/2015 [facility] ELECTROLYTES CO2 30 meq/L 24 - 32 04/03/2015 [facility] ELECTROLYTES BUN 17 mg/dL 7 - 22 04/03/2015 [facility] ELECTROLYTES Glucose Lvl 93 mg/dL 70 - 99 04/03/2015 [facility] ELECTROLYTES eGFR 67 mL/min/1.73m2 04/03/2015 Result Comment: The eGFR is calculated using the [...] from the National Kidney Disease Education Program (NKDEP) which additionally recommends that when the eGFR is used in patients with extremes of body mass index for purposes of drug dosing, the eGFR should be multiplied by the estimated BMI. [facility] ELECTROLYTES Chloride Lvl 110 meq/L 95 - 109 04/03/2015 [facility] ELECTROLYTES Calcium Lvl 7.5 mg/dL 8.5 - 10.5 04/03/2015 [facility] ELECTROLYTES Sodium Lvl 143 meq/L 135 - 145 04/03/2015 [facility] ELECTROLYTES Potassium Lvl 4.2 meq/L 3.5 - 5.1 04/03/2015 [facility] ELECTROLYTES Creatinine Lvl 1.2 mg/dL 0.5 - 1.4 04/03/2015 [facility] HEMATOLOGY RDW 13.5 % 11.5 - 14.5 04/03/2015 [facility] MCHC 32.8 g/dL 32.0 - 36.0 04/03/2015 [facility] HEMATOLOGY Platelet 191 K/CMM 133 - 450 04/03/2015 [facility] MCH 29.8 pg 27.0 - 31.0 04/03/2015 [facility] MCV 90.9 fL 80.0 - 94.0 04/03/2015 [facility] HEMATOLOGY Hgb 12.5 g/dL 14.0 - 18.0 04/03/2015 [facility] HEMATOLOGY Hct 38.1 % 42.0 - 54.0 04/03/2015 [facility] HEMATOLOGY MPV 8.8 fL 7.4 - 10.4 04/03/2015 [facility] HEMATOLOGY WBC 10.1 K/CMM 3.7 - 10.4 04/03/2015 [facility] HEMATOLOGY RBC 4.20 M/CMM 4.70 - 6.10 04/03/2015 [facility] HEMATOLOGY Eosinophils # 0.2 K/CMM 0.0 - 0.5 04/03/2015 [facility] HEMATOLOGY Monocytes # 0.6 K/CMM 0.0 - 0.8 04/03/2015 [facility] HEMATOLOGY Lymphocytes # 2.2 K/CMM 1.0 - 5.5 04/03/2015 [facility] HEMATOLOGY Segs-Bands # 7.0 K/CMM 1.5 - 8.1 04/03/2015 [facility] Monocytes 6.4 % 2.0 - 12.0 04/03/2015 [facility] HEMATOLOGY Lymphocytes 22.0 % 20.0 - 40.0 04/03/2015 [facility] HEMATOLOGY Basophils 0.4 % 0.0 - 1.0 04/03/2015 [facility] HEMATOLOGY Eosinophils 1.8 % 0.0 - 4.0 04/03/2015 [facility] HEMATOLOGY Segs 69.4 % 45.0 - 75.0 04/03/2015 [facility] BLOOD BANK RESULTS ABO/Rh O NEG 04/02/2015 [facility] BLOOD BANK RESULTS Antibody Scrn Negative (04/02/15 8:30 AM) 04/02/2015 [facility] Pelvis AP DX Pelvis AP DX EXAMINATION: Pelvis AP HISTORY: Right hip arthritis. FINDINGS: Single portable frontal view of the pelvis excluding the iliac crests in a portion of the right greater trochanter is performed and compared to examination dated earlier same day. There has been interval completion of a right hip arthroplasty which is in expected position. Of note, a portion of the right greater trochanter is excluded from the image. Gas within the soft tissues is in keeping with the patient's postoperative status. There is unchanged left hip osteoarthritis. IMPRESSION: 1. Interval completion of a new right hip arthroplasty which is in expected position. 04/02/2015 - - Read by: Markie Crump MD Dictated Date/time: 04/02/15 13:09 Electronically Signed by: Markie Crump MD 04/02/15 13:10 FINAL REPORT [facility] Pelvis AP DX Pelvis AP DX EXAMINATION: Pelvis AP HISTORY: Right hip arthritis. FINDINGS: Single portable intraoperative frontal view of the pelvis excluding the iliac crests is performed without comparison. There is ongoing placement of a new right hip arthroplasty with trial femoral fitting component in place. Intra-articular and soft tissue gas is in keeping with the patient's intraoperative status. IMPRESSION: 1. Intraoperative radiograph demonstrating ongoing placement of a new right hip arthroplasty with trial femoral fitting component in place. 04/02/2015 - - Read by: Markie Crump MD Dictated Date/time: 04/02/15 12:19 Electronically Signed by: Markie Crupm MD 04/02/15 12:20 FINAL REPORT [facility] CHEM PANEL Glucose Lvl 87 mg/dL 70 - 99 03/25/2015 [facility] HEMATOLOGY Hct 48.3 % 42.0 - 54.0 03/25/2015 [facility] HEMATOLOGY Hgb 15.4 g/dL 14.0 - 18.0 03/25/2015 [facility] IMMUNOLOGY Hep C Ab Negative *NA* (03/25/15 4:42 PM) 03/25/2015 [facility] IMMUNOLOGY HIV 1/2 Ab Negative *NA* (03/25/15 4:42 PM) Negative 03/25/2015 [facility] BACTERIAL - SEROLOGY MRSA by PCR Negative (03/25/15 4:30 PM) 03/25/2015 [facility] Vital Signs Vital Sign Value Date Comments Source Weight 92.784 02/24/2018 [facility] Heart Rate 90 02/24/2018 [facility] Systolic (mm Hg) 178 02/24/2018 [facility] Diastolic (mm Hg) 102 02/24/2018 [facility] BMI Calculated 30.48 12/29/2017 [facility] Weight 90.909 12/29/2017 [facility] Height 172.7 cm 12/29/2017 [facility] Heart Rate 80 12/29/2017 [facility] Systolic (mm Hg) 150 12/29/2017 [facility] Diastolic (mm Hg) 85 12/29/2017 [facility] Weight 90.909 12/08/2017 [facility] BMI Calculated 30.47 12/08/2017 [facility] Height 172.72 cm 12/08/2017 [facility] Systolic (mm Hg) 148 12/08/2017 [facility] Diastolic (mm Hg) 98 12/08/2017 [facility] Temperature Oral (F) 98.0 F 12/08/2017 [facility] Respitory Rate 16 12/08/2017 [facility] Heart Rate 96 12/08/2017 [facility] Systolic (mm Hg) 108 04/03/2015 [facility] Diastolic (mm Hg) 70 04/03/2015 [facility] Temperature Oral (F) 98.1 F 04/03/2015 [facility] Respitory Rate 16 04/03/2015 [facility] Heart Rate 66 04/03/2015 [facility] Temperature Oral (F) 98.1 F 04/03/2015 [facility] Heart Rate 71 04/03/2015 [facility] Respitory Rate 18 04/03/2015 [facility] Systolic (mm Hg) 110 04/03/2015 [facility] Diastolic (mm Hg) 67 04/03/2015 [facility] Respitory Rate 12 04/03/2015 [facility] Temperature Oral (F) 98.2 F 04/03/2015 [facility] Heart Rate 68 04/03/2015 [facility] Systolic (mm Hg) 103 04/03/2015 [facility] Diastolic (mm Hg) 64 04/03/2015 [facility] BMI Calculated 28.65 03/25/2015 [facility] Height 172.72 cm 03/25/2015 [facility] Weight 85.455 03/25/2015 [facility] Weight 85.455 03/25/2015 [facility] BMI Calculated 28.65 03/25/2015 [facility] Height 172.72 cm 03/25/2015 [facility] Encounters Location Location Details Encounter Type Encounter Number Reason For Visit Attending Provider ADM Date DC Date Status Source [facility] Inpatient [id number] Pedro Zhao 04/02/2015 04/02/2015 [facility] Outpatient [id number] PEDRO SALCEDO 12/08/2017 [facility] [id number] Pedro Salcedo 12/08/2017 12/09/2017 [facility] [id number] PEDRO SALCEDO 12/29/2017 [facility] [id number] Pedro Salcedo 12/29/2017 12/30/2017 [facility] Outpatient [id number] KELLEY TODD 02/24/2018 Active [facility] Outpatient [id number] Kelley Todd 02/24/2018 02/25/2018 [facility] Outpatient [id number] KELLEY TODD 03/24/2018 [facility] Outpatient [id number] KELLEY TODD 03/24/2018 [facility] Outpatient [id number] Kelley Todd 03/24/2018 03/25/2018 [facility] Ambulatory Pre-Reg [id number] 03/24/2018 03/24/2018 [facility] [id number] Kelley Todd 04/13/2018 04/14/[address] [facility] Outpatient [id number] Yao Delacruz 04/28/2018 04/29/2018 [facility] Ambulatory Pre-Reg [id number] Kelley Todd 05/18/2018 05/18/2018 [facility] Outpatient [id number] KELLEY TODD 05/25/2018 Active [facility] Outpatient [id number] KELLEY TODD 06/02/2018 Active [facility] Outpatient [id number] KELLEY TODD 06/16/2018 Active [facility] Outpatient [id number] KELLEY TODD 07/14/2018 Active [facility] Procedures Procedure Code Date Perfomer Comments Source Cystourethroscopy (separate procedure) 96504 03/24/2018 [facility] Measurement of post-voiding residual urine and/or bladder capacity by ultrasound, non-imaging [id number] 02/24/2018 [facility] Measurement of post-voiding residual urine and/or bladder capacity by ultrasound, non-imaging 29959 12/08/2017 [facility] Hip<sup>1</sup> [id number] rt hip 2015 [facility] Procedure on prostate<sup>2</sup> [id number] [facility] Hip<sup>1</sup> [id number] rt hip 2015 [facility] Procedure on prostate<sup>2</sup> [id number] urolift [facility] Hip<sup>1</sup> [id number] rt hip 2015 [facility] Procedure on prostate<sup>2</sup> [id number] urolift [facility]
--- OUTSIDE RECORDS SUMMARY | 2018-12-06 09:20 | XMS REPORT | Summary of Care ---
Author Author [facility] Urology [facility] Organization [facility] Urology [facility] Address Unknown Phone Unavailable Encounter VAHID Raza(FIN) [id number] Date(s): 12/29/17 - 12/29/17 [facility] Urology [facility] [address] [place], [place] [address] Discharge Disposition: Home or Self Care Attending Physician: Pedro Salcedo MD Vital Signs Most recent to 1 oldest [Reference Range]: Height 172.7 cm (12/29/17 1:24 PM) Blood Pressure 150/85 mmHg [90-140/60-90 mmHg] *HI* (12/29/17 1:24 PM) Peripheral Pulse 80 bpm Rate [60-100 bpm] (12/29/17 1:24 PM) Weight 90.909 kg (12/29/17 1:24 PM) Body Mass Index 30.48 m2 (12/29/17 1:24 PM) Problem List Condition Effective Dates Status Health Status Informant 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 Allergies, Adverse Reactions, Alerts Substance Reaction Severity Status NKDA Active Medications Levaquin 500 mg oral tablet 500 mg=1 tab, PO, Q24H, start one day before your prostate biopsy, X 3 day, # 3 tab, 0 Refill(s), Pharmacy: [id number] Start Date: 12/31/17 Stop Date: 01/03/18 Status: Ordered Results No data available for this section Immunizations No data available for this section Procedures Procedure Date Related Diagnosis Body Site Status Hip1 Completed 1rt hip 2016 Social History Social History Type Response Substance Abuse Use: None. Sexual Sexually active: Yes. Alcohol Never Smoking Status Former smoker; Type: Cigarettes; Exposure to Tobacco Smoke None; Cigarette Smoking Last 365 Days No; Reg Smoking Cessation Counseling No entered on: 12/29/17 Assessment and Plan No data available for this section
--- OUTSIDE RECORDS SUMMARY | 2018-12-06 09:20 | XMS REPORT | Summary of Care ---
Author Author [facility] Outpatient Imaging [facility] Address Unknown Phone Unavailable Encounter HQ Encntr_alias(FIN) [id number] Date(s): 04/13/18 - 04/13/18 [facility] Outpatient Imaging [place] [address] [place], [place] [address]- Encounter Diagnosis Benign prostatic hyperplasia with lower urinary tract symptoms (Final) - 04/19/18 Elevated prostate specific antigen [PSA] (Final) - Chronic prostatitis (Final) - Other obstructive and reflux uropathy (Final) - Presence of right artificial hip joint (Final) - Discharge Disposition: Home or Self Care Attending Physician: Gabe Todd MD Referring Physician: Gabe Todd MD Vital Signs No [...]
--- OUTSIDE RECORDS SUMMARY | 2018-12-06 09:20 | XMS REPORT | Clinical Summary ---
Author Author [facility] Address Unknown Phone Unavailable Care Team Providers Care [employer] Name Role Phone Jordin Hernandez MD PCP Allergies No Known Allergies Medications No known medications Active Problems Problem Noted Date Weakness of right leg 11/15/2016 Family History Medical History Relation Name Comments Cancer Father Cancer Mother Relation Name Status Comments Father Mother Social History Date Tobacco Use Types Packs/Day Years Used Never Smoker Smokeless Tobacco: Never Used Alcohol Use Drinks/Week oz/Week Comments No Sex Assigned at Date Recorded Not on file Industry Job Start Date Occupation Not on file Not on file Not on file Travel End Travel History Travel Start No recent travel history available. Last Filed Vital Signs Not on file Plan of Treatment Health Maintenance Due Date Last Done Comments COLON CANCER SCREENING 2008 SHINGLES VACCINES (#1) 2008 INFLUENZA VACCINE 03/16/2019 Results Not on fileafter 12/05/2017 Insurance Payer Benefit Subscriber ID Type Phone Address Plan / Group [facility] xxxxxxxxx HMO/PPO THCARE CHOICE/CHO ICE + Advance Directives Patient has advance care planning documents on file. For more information, estrellita rosario contact: Jean Claude Baldwin [address] [place] [address]
--- OUTSIDE RECORDS SUMMARY | 2018-12-06 09:20 | XMS REPORT | Summary of Care ---
Author Author [facility] Address Unknown Phone Unavailable Encounter VAHID Raza(FIN) [id number] Date(s): 02/24/18 - 02/24/18 [facility] [address] [place] [address]- [phone] Discharge Disposition: Home or Self Care Attending Physician: Gabe Todd MD Vital Signs Most recent to 1 oldest [Reference Range]: Blood Pressure 178/102 mmHg [90-140/60-90 mmHg] *HI* (02/24/18 1:42 PM) Peripheral Pulse 90 bpm Rate [60-100 bpm] (02/24/18 1:42 PM) Weight 92.784 kg (02/24/18 1:42 PM) Problem List Condition Effective Dates Status Health Status Informant BPH with urinary Active obstruction(Confirme d) Localized Active osteoarthritis(Confi rmed)1 Elevated Active PSA(Confirmed) Simple Active obesity(Confirmed) 1hip - right. Allergies, Adverse Reactions, Alerts Substance Reaction Severity Status NKDA Active Medications Cipro 250 mg oral tablet 250 mg=1 tab, PO, Q12H, for UTI, X 3 day, # 6 tab, 0 Refill(s), Pharmacy: [id number] Start Date: 02/24/18 Stop Date: 02/27/18 Status: Ordered Cipro 250 mg oral tablet 250 mg=1 tab, PO, Q12H, for UTI, X 3 day, # 6 tab, 0 Refill(s) Start Date: 02/24/18 Stop Date: 02/24/18 Status: Discontinued tamsulosin 0.4 mg oral capsule 0.4 mg=1 cap, PO, Daily, # 30 cap, 11 Refill(s), Pharmacy: [id number] Start Date: 02/24/18 Stop Date: 02/19/19 Status: Ordered Results No data available for this section Immunizations No data available for this section Procedures Procedure Date Related Diagnosis Body Site Status Measurement of post-voiding residual urine 02/24/18 Completed and/or bladder capacity by ultrasound, non-imaging Hip1 Completed 1rt hip 2016 Social History Social History Type Response Substance Abuse Use: None. Sexual Sexually active: Yes. Alcohol Never Smoking Status Former smoker; Type: Cigarettes; Exposure to Tobacco Smoke None; Cigarette Smoking Last 365 Days No; Reg Smoking Cessation Counseling No entered on: 02/24/18 Assessment and Plan No data available for this section
== END | disposition home or self-care (01) ==
LOC: OR 09:05
PROVIDERS: ATTEND Internal Medicine Gastroenterology
DX: K29.70 Gastritis, unspecified, without bleeding (principal); D12.2 Benign neoplasm of ascending colon; K50.10 Crohn's disease of large intestine without complications; K22.10 Ulcer of esophagus without bleeding; K29.80 Duodenitis without bleeding; K44.9 Diaphragmatic hernia without obstruction or gangrene; K57.30 Diverticulosis of large intestine without perforation or abscess without bleeding; K64.8 Other hemorrhoids; R03.0 Elevated blood-pressure reading, without diagnosis of hypertension; Z01.810 Encounter for preprocedural cardiovascular examination; Z68.30 Body mass index [BMI] 30.0-30.9, adult; Z80.0 Family history of malignant neoplasm of digestive organs
CPT/HCPCS: 43239; 45380; 45384; 45385; 93005; J1980; J2250; J2704 ×2; J2765; 45378

== ENCOUNTER 2019-04-08 09:12 | Emergency (ER) | payer BC, OTHER ==
[~2019-04-08] VITALS: Ht 172.7 cm; Wt 90.7 kg
--- OUTSIDE RECORDS SUMMARY | 2019-04-08 09:16 | XMS REPORT | Summary of Care ---
Author Author [facility] Urology [facility] Organization [facility] Address Unknown Phone Unavailable Encounter VAHID Raza(FIN) [id number] Date(s): 05/25/18 - 05/25/18 [facility] [address] [place] [address]- Attending Physician: Gabe Todd MD Vital Signs No data available for this section Problem List Condition Effective Dates Status Health Status Informant BPH with urinary Active obstruction(Confirme d) Localized Active osteoarthritis(Confi rmed)1 Elevated Active PSA(Confirmed) Simple Active obesity(Confirmed) 1hip - right. Allergies, Adverse Reactions, Alerts No Known Medication Allergies Medications No data available for this section [...]
--- OUTSIDE RECORDS SUMMARY | 2019-04-08 09:16 | XMS REPORT | Continuity of Care Document ---
Author Author [facility] Organization [facility] Address Unknown Phone Unavailable Care Team Providers Care Lathe Operator Contact Lens Name Role Phone Sian's Plan Information Kenandy Unavailable Unavailable Problems Problem Status Onset Date Classification Date Reported Comments Source Encounter for preprocedural cardiovascular examination 05/05/2018 11/15/2018 [facility] Z01.810 Active 04/22/2018 [facility] Enlarged prostate with lower urinary tract symptoms 04/20/2018 10/31/2018 [facility] N40.1 - ENLARGED PROSTATE WITH LOWER U R Active 03/28/2018 DIANNE Romero [id number], RIGHT HIP PAIN AND HIP OSTEOARTHR Active 02/25/2015 [facility] Benign prostatic hypertroph with outflow obstruction (disorder) Active Problem 02/01/2019 [facility], DIANNE Romero,[facility] Localized osteoarthrosis (disorder) Active Problem 02/01/2019 hip - right. [facility], DIANNE Romero,[facility] Raised prostate specific antigen (finding) Active Problem 02/01/2019 [facility], DIANNE Romero,[facility] Simple obesity (disorder) Active Problem 02/01/2019 [facility], DIANNE Romero,[facility] Elevated prostate specific antigen [PSA] 10/31/2018 [facility] Romero Chronic prostatitis 10/31/2018 [facility] Rom[facility] Other obstructive and reflux uropathy 10/31/2018 [facility] Rom[facility] Presence of right artificial hip joint 10/31/2018 DIANNE Romero ADMINISTRTVE ENCOUNT NOS Active [facility] Medications Medication Details Route Status Patient Instructions Ordering Provider Order Date Source tamsulosin 0.4 mg oral capsule 0.4 mg=1 cap, PO, Daily, # 30 cap, 11 Refill(s), [facility] Active 06/16/2018 [facility] Ciprofloxacin 250 MG Oral Tablet [Cipro] 250 mg=1 tab, PO, Q12H, for UTI, X 3 day, # 6 tab, 0 Refill(s), Pharmacy: [facility] Active 02/24/2018 [facility] Ciprofloxacin 250 MG Oral Tablet [Cipro] 250 mg=1 tab, PO, Q12H, for UTI, X 3 day, # 6 tab, 0 Refill(s) Inactive 02/24/2018 [facility] tamsulosin 0.4 mg oral capsule 0.4 mg=1 cap, PO, Daily, # 30 cap, 11 Refill(s), Pharmacy: [facility] Active 02/24/2018 [facility] Levofloxacin 500 MG Oral Tablet [Levaquin] 500 mg=1 tab, PO, Q24H, start one day before your prostate biopsy, X 3 day, # 3 tab, 0 Refill(s), Pharmacy: [facility] Active 12/31/2017 [facility] tamsulosin 0.4 mg oral capsule 0.4 mg=1 cap, PO, Daily, # 30 cap, 0 Refill(s) Active 12/08/2017 [facility] CeleBREX 200 mg, 1 cap, Route: PO, Drug form: CAP, Q12H, Start date: 04/03/15 12:00:00, Duration: 30 day, Stop date: 05/03/15 0:00:00Notes: NSAID. Please check indication. Not for seizure. (Same As: CeleBREX) Inactive 04/03/2015 [facility] meloxicam 15 mg oral tablet 15 mg=1 tab, PO, Daily, # 30 tab, 0 Refill(s), other Active 04/03/2015 [facility] Aspirin 325 MG Enteric Coated Tablet 325 mg=1 tab, PO, Q12H, 0 Refill(s) Active 04/03/2015 [facility] gabapentin 300 MG Oral Capsule 300 mg=1 cap, PO, Bedtime, # 21 cap, 0 Refill(s), other Active 04/03/2015 [facility] Acetaminophen 325 MG / Hydrocodone Bitartrate 10 MG Oral Tablet [Mcdavid 10/325] 1-2 tab, PO, Q4-6H, PRN Pain, X 14 day, # 90 tab, 0 Refill(s), other Active 04/03/2015 [facility] celecoxib 200 mg oral capsule 200 mg=1 cap, PO, Q12H, 0 Refill(s) Inactive 04/03/2015 [facility] acetaminophen 1,000 mg, 2 tab, Route: PO, Drug form: TAB, Q6H, PRN Pain 1-3/Temp > 100.4 F, Start date: 04/03/15 8:30:00, Duration: 30 day, Stop date: 05/03/15 8:29:00Notes: Max acetaminophen 4000 mg/day (4 gm/day). (Same as: Tylenol Extra Strength) Inactive 04/03/2015 [facility] Famotidine 20 MG Oral Tablet [Pepcid] 20 mg, 1 tab, Route: PO, Drug form: TAB, Q12H, Dosing Weight 85.455, kg, Start date: 04/02/15 21:00:00, Duration: 30 day, Stop date: 05/02/15 9:00:00Notes: (Same as: Pepcid) No Longer Active 04/03/2015 [facility] Mupirocin 1 appl, Route: NASAL, Q12H, Drug form: OINT, Start date: 04/02/15 21:00:00, Duration: 30 day, Stop date: 05/02/15 9:00:00 No Longer Active 04/03/2015 [facility] Vancomycin 6.67 MG/ML Injectable Solution 1 gm, 200 mL, Route: IVPB, Drug form: INJ, Q12H, Dosing Weight 85.455, kg, Time Critical Medication, Start date: 04/02/15 20:30:00, Duration: 2 doses or times, Stop date: 04/03/15 8:30:00, Pharmacy to adjust dose for renal functionSpecial Instructions: Pharmacy to adjust dose for renal functionNotes: TIME CRITICAL MEDICATION No Longer Active 04/03/2015 [facility] POLYETHYLENE GLYCOL 3350 17 gm, 1 pkt, Route: PO, Drug form: PWDR, Daily, Dosing Weight 85.455, kg, Start date: 04/02/15 17:00:00, Duration: 30 day, Stop date: 05/02/15 9:00:00Notes: Dissolve in 8 oz of water or juice. (Same as: Miralax) No Longer Active 04/02/2015 [facility] Docusate 100 mg, 1 cap, Route: PO, Drug form: CAP, BID, Dosing Weight 85.455, kg, Start date: 04/02/15 17:00:00, Duration: 30 day, Stop date: 05/02/15 9:00:00Notes: (Same as: Colace) (Do Not Crush) No Longer Active 04/02/2015 [facility] gabapentin 300 mg, 1 cap, Route: PO, Drug form: CAP, Q8H, Dosing Weight 85.455, kg, Start date: 04/02/15 16:00:00, Duration: 30 day, Stop date: 05/02/15 8:00:00Notes: (Same as: Neurontin) No Longer Active 04/02/2015 [facility] Acetaminophen 1,000 mg, 100 mL, Route: IVPB, Drug form: INJ, Q6H, Dosing Weight 85.455, kg, Start date: 04/02/15 15:30:00, Stop date: 04/03/15 9:30:00Notes: Infuse over 15 minutes Do not exceed 4gm/day of acetami nophen MEDICATION WASTE Product Size: 1000 mg Product Wasted: ___ mg No Longer Active 04/02/2015 [facility] ceFAZolin (SCIP) + Sodium Chloride 0.9% IV 100 mL 1 gm, Route: IVPB, Q6H, Dosing Weight 85.455, kg, Start date: 04/02/15 15:30:00, Duration: 3 doses or times, Stop date: 04/03/15 3:30:00Notes: (Same As: AncJulio boydzomikala) MEDICATION WASTE Product Size: 1000 mg Product Wasted: ___ mg No Longer Active 04/02/2015 [facility] Tramadol 50 mg, 1 tab, Route: PO, Drug form: TAB, Q6H, Dosing Weight 85.455, kg, Start date: 04/02/15 12:06:00, Duration: 30 day, Stop date: 05/02/15 12:00:00Notes: Not to exceed 400mg/day. (Same As: Ultram) No Longer Active 04/02/2015 [facility] Ketorolac 30 mg, 1 mL, Route: IVP, [...] Wasted: ___ mg No Longer Active 04/02/2015 [facility] Aspirin 325 MG Enteric Coated Tablet 325 mg, 1 tab, Route: PO, Drug form: ECTAB, Q12H, Dosing Weight 85.455, kg, Start date: 04/02/15 12:05:00, Duration: 30 day, Stop date: 05/02/15 9:00:00Notes: (Do Not Crush) Do not crush or chew. No Longer Active 04/02/2015 [facility] Metoclopramide 10 MG Oral Tablet [Reglan] 10 mg, 1 tab, Route: PO, Drug form: TAB, Before Meals & Bedtime, Dosing Weight 85.455, kg, Start date: 04/02/15 11:30:00, Duration: 30 day, Stop date: 05/02/15 7:30:00Notes: (Same as: Reglan) Take 30 min before meals No Longer Active 04/02/2015 [facility] Tranexamic Acid 1 gm, Route: IVPB, Drug form: SOLN, ONCE, Dosing Weight 85.455, kg, Start date: 04/02/15 10:55:00, Stop date: 04/02/15 10:55:00 Inactive 04/02/2015 [facility] Aspirin 325 mg, Route: PO, Q12H, Dosing Weight 85.455, kg, For patients with risk of bleeding, Start date: 04/02/15 10:39:00, Duration: 30 day, Stop date: 05/02/15 9:00:00 Inactive 04/02/2015 [facility] Albuterol 0.83 MG/ML Inhalant Solution 2.49 mg, 3 mL, Route: NEB, Drug form: SOLN, PRN, Dosing Weight 85.455, kg, PRN Respiratory Protocol, Start date: 04/02/15 10:27:00, Duration: 30 day, Stop date: 05/02/15 10:26:00Notes: SEE RT DOCUMENTATION (Same as: Proventil) Inactive 04/02/2015 [facility] Ondansetron 4 mg, 2 mL, Route: IVP, Drug form: INJ, ONCE, Dosing Weight 85.455, kg, PRN Nausea & Vomiting, Start date: 04/02/15 10:27:00Notes: (Same as: Isidro) MEDICATION WASTE Product Size: 4 mg Product Wasted: ___ mg Inactive 04/02/2015 [facility] Glycopyrrolate 0.2 mg, 1 mL, Route: IVP, Drug form: INJ, Q5Min, Dosing Weight 85.455, kg, PRN Bradycardia, Start date: 04/02/15 10:27:00, Duration: 3 doses or times, Stop date: Limited # of timesNotes: (Same as: Valentina) Inactive 04/02/2015 [facility] esmolol 10 mg, 1 mL, Route: IVP, Drug form: INJ, Q5Min, Dosing Weight 85.455, kg, PRN Other -See Comment, Start date: 04/02/15 10:27:00, Duration: 5 doses or times, Stop date: Limited # of timesNotes: (Same as: Brevibloc) Inactive 04/02/2015 [facility] Diphenhydramine 12.5 mg, 0.25 mL, Route: IVP, Drug form: INJ, Q6H, Dosing Weight 85.455, kg, PRN Itching, Start date: 04/02/15 10:27:00, Duration: 30 day, Stop date: 05/02/15 10:26:00Notes: (Same as: Benadryl) Inactive 04/02/2015 [facility] Atropine 0.2 mg, 0.5 mL, Route: IVP, Drug form: INJ, Q5Min, Dosing Weight 85.455, kg, PRN Other -See Comment, as needed; for symptomatic pulse rate Notes: MEDICATION WASTE Product Size: 0.4 mg Product Wasted: ___ mg Inactive 04/02/2015 [facility] Naloxone 0.04 mg, 0.1 mL, Route: IVP, Drug form: INJ, Q2MIN, Dosing Weight 85.455, kg, PRN Narcotic Reversal, Start date: 04/02/15 10:27:00, Duration: 8 doses or times, Stop date: Limited # of timesNotes: Same as Narcan Inactive 04/02/2015 [facility] Flumazenil 0.2 mg, 2 mL, Route: IVP, Drug form: INJ, PRN, Dosing Weight 85.455, kg, PRN Benzodiazepine Reversal, Initial dose, Start date: 04/02/15 10:27:00, Duration: 30 day, Stop date: 05/02/15 10:26:00Notes: (Same as: Romazicon) Inactive 04/02/2015 [facility] Hydromorphone 0.5 mg, 0.25 mL, Route: IVP, Drug form: INJ, Q5Min, Dosing Weight 85.455, kg, PRN Pain Score 7-10, Start date: 04/02/15 10:27:00, Duration: 4 doses or times, Stop date: Limited # of timesNotes: (Same as: Dilaudid) Inactive 04/02/2015 [facility] Morphine 2 mg, 0.2 mL, Route: IVP, Drug form: INJ, Q5Min, Dosing Weight 85.455, kg, PRN Pain Score 4-6, Start date: 04/02/15 10:27:00, Duration: 5 doses or times, Stop date: Limited # of timesNotes: (Same as: MORPhine Sulfate) Inactive 04/02/2015 [facility] Sodium Chloride 0.9% IV 25 mL, Route: IV, Start date: 04/02/15 7:57:00, Duration: 30 day, Stop date: 05/02/15 7:56:00, PRN Line Flush No Longer Active 04/02/2015 [facility] BD Normal Saline Flush 10 mL, Route: IV, Drug Form: INJ, PRN, PRN Line Flush, Start date: 04/02/15 7:57:00, Duration: 30 day, Stop date: 05/02/15 7:56:00Notes: (Same as: BD Posiflush) No Longer Active 04/02/2015 [facility] celecoxib 200 mg, Route: PO, [id number], Dosing Weight 85.455, kg, Start date: 04/02/15 7:00:00, Duration: 30 day, Stop date: 05/01/15 19:00:00 Inactive 04/02/2015 [facility] Al hydroxide/Mg hydroxide/simethicone 200 mg-200 mg-20 mg/5 mL oral suspension 30 mL, Route: PO, Drug Form: SUSP, Dosing Weight 85.455, kg, Q4H, PRN Indigestion, Start date: 04/02/15 6:39:00, Duration: 30 day, Stop date: 05/02/15 6:38:00Notes: (aluminum hydroxide-magnesium hyd-simethicone [phone]/5ml 30 ml ud BETHANY) No Longer Active 04/02/2015 [facility] Hydroxyzine 25 mg, 1 tab, Route: PO, Drug form: TAB, Q6H, Dosing Weight 85.455, kg, PRN Itching, Start date: 04/02/15 6:39:00, Duration: 30 day, Stop date: 05/02/15 6:38:00Notes: (Same as: Atarax) Avoid alcohol. No Longer Active 04/02/2015 [facility] Trazodone 50 mg, 1 tab, Route: PO, Drug form: TAB, Bedtime, Dosing Weight 85.455, kg, PRN Insomnia, Start date: 04/02/15 6:39:00, Duration: 30 day, Stop date: 05/02/15 6:38:00Notes: (Same As: Desyrel) No Longer Active 04/02/2015 [facility] Ondansetron 4 mg, 2 mL, Route: IVP, Drug form: INJ, Q8H, Dosing Weight 85.455, kg, PRN Nausea & Vomiting, Start date: 04/02/15 6:39:00, Duration: 30 day, Stop date: 05/02/15 6:38:00Notes: (Same as: Zofran) MEDICATION WASTE Product Size: 4 mg Product Wasted: ___ mg No Longer Active 04/02/2015 [facility] Methocarbamol 1,000 mg, 2 tab, Route: PO, Drug form: TAB, Q8H, Dosing Weight 85.455, kg, PRN Muscle Spasms, Start date: 04/02/15 6:39:00, Duration: 30 day, Stop date: 05/02/15 6:38:00Notes: (Same as:Robaxin) No Longer Active 04/02/2015 [facility] Hydromorphone 0.3 mg, 0.15 mL, Route: IVP, Drug form: INJ, Q4H, Dosing Weight 85.455, kg, PRN Pain Score 7-10, Start date: 04/02/15 6:39:00, Duration: 30 day, Stop date: 05/02/15 6:38:00Notes: (Same as: Dilaudid) No Longer Active 04/02/2015 [facility] Oxycodone Hydrochloride 5 MG Oral Tablet 10 mg, 2 tab, Route: PO, Drug form: TAB, Q4H, Dosing Weight 85.455, kg, PRN Pain Score 7-10, Start date: 04/02/15 6:39:00, Duration: 30 day, Stop date: 05/02/15 6:38:00Notes: (Same as: Roxicodone) No Longer Active 04/02/2015 [facility] 1/2 NS 1,000 mL 1,000 mL, Rate: 75 ml/hr, Infuse over: 13.3 hr, Route: IV, Dosing Weight 85.455 kg, Total Volume: 1,000, Start date: 04/02/15 6:39:00, Duration: 30 day, Stop date: 05/02/15 6:38:00 No Longer Active 04/02/2015 [facility] Ofirmev 1,000 mg, 100 mL, Route: IV, PRE OP, Start date: 04/02/15 6:30:00, Stop date: 04/02/15 23:00:00Notes: Infuse over 15 minutes Do not exceed 4gm/day of acetaminophen MEDICATION WASTE Product Size: 1000 mg Product Wasted: ___ mg No Longer Active 04/02/2015 [facility] Neurontin 300 mg, 1 cap, Route: PO, Drug form: CAP, PRE OP, Start date: 04/02/15 6:30:00, Stop date: 04/02/15 23:00:00Notes: (Same as: Neurontin) Inactive 04/02/2015 [facility] CeleBREX 400 mg, 2 cap, Route: PO, Drug form: CAP, PRE OP, Start date: 04/02/15 6:30:00, Stop date: 04/02/15 23:00:00Notes: NSAID. Please check indication. Not for seizure. (Same As: CeleBREX) Inactive 04/02/2015 [facility] Zofran 4 mg, 2 mL, Route: IVP, Drug form: INJ, PRE OP, Start date: 04/02/15 6:30:00, Stop date: 04/02/15 23:00:00Notes: (Same as: Zofran) MEDICATION WASTE Product Size: 4 mg Product Wasted: ___ mg Inactive 04/02/2015 [facility] Reglan 10 mg, 1 tab, Route: PO, Drug form: TAB, PRE OP, Start date: 04/02/15 6:30:00, Stop date: 04/02/15 23:00:00Notes: (Same as: Reglan) Take 30 min before meals Inactive 04/02/2015 [facility] Pepcid 20 mg, 1 tab, Route: PO, Drug form: TAB, PRE OP, Start date: 04/02/15 6:30:00, Stop date: 04/02/15 23:00:00Notes: (Same as: Pepcid) Inactive 04/02/2015 [facility] ceFAZolin 2 gm, 100 mL, Route: IVPB, Drug form: INJ, PRE OP, Start date: 04/02/15 6:30:00, Stop date: 04/02/15 23:00:00Notes: Same as: Ancef Inactive 04/02/2015 [facility] vancomycin 1.25 gm, 250 mL, Route: IVPB, Drug form: INJ, PRE OP, Start date: 04/02/15 6:30:00, Stop date: 04/02/15 23:00:00Notes: TIME CRITICAL MEDICATION Same as: Vancocin-NS (premixed) Infusion rate 2001 mg: infuse over 2.5 hours Inactive 04/02/2015 [facility] Allergies, Adverse Reactions, Alerts Substance Category Reaction Severity Reaction type Status Date Reported Comments Source No Known Medication Allergies Assertion Drug allergy [facility] Immunizations No Data Provided for This Section Results Order Name Results Value Reference Range Date Interpretation Comments Source URINE AND STOOL POC UA LeukEst Negative *NA* (07/14/18 4:40 PM) Negative 07/14/2018 [facility] URINE AND STOOL POC UA Nit Negative *NA* (07/14/18 4:40 PM) Negative 07/14/2018 [facility] URINE AND STOOL POC UA Uro 0.2 0.1 - 1.0 07/14/2018 [facility] URINE AND STOOL POC UA Turbidity Clear *NA* (07/14/18 4:40 PM) Clear 07/14/2018 [facility] URINE AND STOOL POC UA Color Yellow *NA* (07/14/18 4:40 PM) Yellow 07/14/2018 [facility] URINE AND STOOL POC UA Prot Negative mg/dL Negative mg/dL 07/14/2018 [facility] URINE AND STOOL POC UA SG 1.025 <=1.030 07/14/2018 [facility] URINE AND STOOL POC UA pH 5.5 5.0 - 8.0 07/14/2018 [facility] URINE AND STOOL POC UA Ket Negative mg/dL Negative mg/dL 07/14/2018 [facility] URINE AND STOOL POC UA Glu Negative mg/dL Negative mg/dL 07/14/2018 [facility] URINE AND STOOL POC UA Bili Negative *NA* (07/14/18 4:40 PM) Negative 07/14/2018 [facility] URINE AND STOOL POC UA Bld Negative *NA* (07/14/18 4:40 PM) Negative 07/14/2018 [facility] URINE AND STOOL POC UA Bld Moderate *ABN* (07/14/18 4:37 PM) Negative 07/14/2018 [facility] URINE AND STOOL POC UA Bili Negative *NA* (07/14/18 4:37 PM) Negative 07/14/2018 [facility] URINE AND STOOL POC UA Uro 0.2 0.1 - 1.0 07/14/2018 [facility] URINE AND STOOL POC UA LeukEst Small *ABN* (07/14/18 4:37 PM) Negative 07/14/2018 [facility] URINE AND STOOL POC UA Nit Negative *NA* (07/14/18 4:37 PM) Negative 07/14/2018 [facility] URINE AND STOOL POC UA pH 5.0 5.0 - 8.0 07/14/2018 [facility] URINE AND STOOL POC UA SG 1.010 <=1.030 07/14/2018 [facility] URINE AND STOOL POC UA Prot Negative mg/dL Negative mg/dL 07/14/2018 [facility] URINE AND STOOL POC UA Glu Negative mg/dL Negative mg/dL 07/14/2018 [facility] URINE AND STOOL POC UA Ket Negative mg/dL Negative mg/dL 07/14/2018 [facility] URINE AND STOOL POC UA Color Yellow *NA* (07/14/18 4:37 PM) Yellow 07/14/2018 [facility] URINE AND STOOL POC UA Turbidity Clear *NA* (07/14/18 4:37 PM) Clear 07/14/2018 [facility] ELECTROLYTES AGAP 7.2 10.0 - 20.0 04/03/2015 [facility] ELECTROLYTES CO2 30 24 - 32 04/03/2015 [facility] ELECTROLYTES BUN 17 7 - 22 04/03/2015 [facility] ELECTROLYTES Glucose Lvl 93 70 - 99 04/03/2015 [facility] ELECTROLYTES eGFR 67 04/03/2015 Result Comment: The eGFR is calculated [...] should be multiplied by the estimated BMI. [facility] ELECTROLYTES Chloride Lvl 110 95 - 109 04/03/2015 [facility] ELECTROLYTES Calcium Lvl 7.5 8.5 - 10.5 04/03/2015 [facility] ELECTROLYTES Sodium Lvl 143 135 - 145 04/03/2015 [facility] ELECTROLYTES Potassium Lvl 4.2 3.5 - 5.1 04/03/2015 [facility] ELECTROLYTES Creatinine Lvl 1.2 0.5 - 1.4 04/03/2015 [facility] HEMATOLOGY RDW 13.5 11.5 - 14.5 04/03/2015 [facility] HEMATOLOGY MCHC 32.8 32.0 - 36.0 04/03/2015 [facility] HEMATOLOGY Platelet 191 133 - 450 04/03/2015 [facility] HEMATOLOGY MCH 29.8 27.0 - 31.0 04/03/2015 [facility] HEMATOLOGY MCV 90.9 80.0 - 94.0 04/03/2015 [facility] HEMATOLOGY Hgb 12.5 14.0 - 18.0 04/03/2015 [facility] HEMATOLOGY Hct 38.1 42.0 - 54.0 04/03/2015 [facility] HEMATOLOGY MPV 8.8 7.4 - 10.4 04/03/2015 [facility] HEMATOLOGY WBC 10.1 3.7 - 10.4 04/03/2015 [facility] HEMATOLOGY RBC 4.20 4.70 - 6.10 04/03/2015 [facility] HEMATOLOGY Eosinophils # 0.2 0.0 - 0.5 04/03/2015 [facility] HEMATOLOGY Monocytes # 0.6 0.0 - 0.8 04/03/2015 [facility] HEMATOLOGY Lymphocytes # 2.2 1.0 - 5.5 04/03/2015 [facility] HEMATOLOGY Segs-Bands # 7.0 1.5 - 8.1 04/03/2015 [facility] HEMATOLOGY Monocytes 6.4 2.0 - 12.0 04/03/2015 [facility] HEMATOLOGY Lymphocytes 22.0 20.0 - 40.0 04/03/2015 [facility] HEMATOLOGY Basophils 0.4 0.0 - 1.0 04/03/2015 [facility] HEMATOLOGY Eosinophils 1.8 0.0 - 4.0 04/03/2015 [facility] HEMATOLOGY Segs 69.4 45.0 - 75.0 04/03/2015 [facility] BLOOD BANK RESULTS ABO/Rh O NEG 04/02/2015 [facility] BLOOD BANK RESULTS Antibody Scrn Negative (04/02/15 8:30 AM) 04/02/2015 [facility] CHEM PANEL Glucose Lvl 87 70 - 99 03/25/2015 [facility] HEMATOLOGY Hct 48.3 42.0 - 54.0 03/25/2015 [facility] HEMATOLOGY Hgb 15.4 14.0 - 18.0 03/25/2015 [facility] IMMUNOLOGY Hep C Ab Negative *NA* (03/25/15 4:42 PM) 03/25/2015 [facility] IMMUNOLOGY HIV 1/2 Ab Negative *NA* (03/25/15 4:42 PM) Negative 03/25/2015 [facility] BACTERIAL - SEROLOGY MRSA by PCR Negative (03/25/15 4:30 PM) 03/25/2015 [facility] Pathology Reports No Data Provided for This Section Diagnostic Reports Report Value Date Source Prostate w/wo contrast MRI PROCEDURE: MRI PELVIS [...] TECHNIQUE: Using a phased array coil small reavc-wz-sirr imaging of the prostate was performed using the following sequences; Multiplanar T1 and T2 MARITZA, axial DWI SENSE / ADC (b values=0, 500 \T\1000) and dynamic contrast-enhanced (DCE) axial 3-D T1 weighted FFE with IV contrast. Using a large uogyk-hk-osyg, the entire pelvis to the level of [...] on factors other than mpMRI alone. SL: [id number] 04/13/2018 DIANNE Romero Pelvis AP DX EXAMINATION: Pelvis AP HISTORY: [...] arthroplasty which is in expected position. 04/02/2015 [facility] Pelvis AP DX EXAMINATION: Pelvis AP HISTORY: [...] trial femoral fitting component in place. 04/02/2015 [facility] Consultation Notes No Data Provided for This Section Discharge Summaries No Data Provided for This Section History and Physicals No Data Provided for This Section Vital Signs Vital Sign Value Date Comments Source Weight 92.273 07/14/2018 [facility] Heart Rate 83 07/14/2018 [facility] Systolic (mm Hg) 172 07/14/2018 [facility] Diastolic (mm Hg) 110 07/14/2018 [facility] Heart Rate 69 06/16/2018 [facility] Systolic (mm Hg) 164 06/16/2018 [facility] Diastolic (mm Hg) 95 06/16/2018 [facility] Weight 92.273 06/16/2018 [facility] Weight 92.784 02/24/2018 [facility] Heart Rate 90 02/24/2018 [facility] Systolic (mm Hg) 178 02/24/2018 [facility] Diastolic (mm Hg) 102 02/24/2018 [facility] BMI Calculated 30.48 12/29/2017 [facility] Weight 90.909 12/29/2017 [facility] Height 172.7 cm 12/29/2017 [facility] Heart Rate 80 12/29/2017 [facility] Systolic (mm Hg) 150 12/29/2017 [facility] Diastolic (mm Hg) 85 12/29/2017 [facility] Weight 90.909 12/08/2017 [facility] BMI Calculated 30.47 12/08/2017 [facility] Height 172.72 cm 12/08/2017 [facility] Systolic (mm Hg) 148 12/08/2017 [facility] Diastolic (mm Hg) 98 12/08/2017 [facility] Temperature Oral (F) 98.0 F 12/08/2017 [facility] Respitory Rate 16 12/08/2017 [facility] Heart Rate 96 12/08/2017 [facility] Systolic (mm Hg) 108 04/03/2015 [facility] Diastolic (mm Hg) 70 04/03/2015 [facility] Temperature Oral (F) 98.1 F 04/03/2015 [facility] Respitory Rate 16 04/03/2015 [facility] Heart Rate 66 04/03/2015 [facility] Temperature Oral (F) 98.1 F 04/03/2015 [facility] Heart Rate 71 04/03/2015 [facility] Respitory Rate 18 04/03/2015 [facility] Systolic (mm Hg) 110 04/03/2015 [facility] Diastolic (mm Hg) 67 04/03/2015 [facility] Respitory Rate 12 04/03/2015 [facility] Temperature Oral (F) 98.2 F 04/03/2015 [facility] Heart Rate 68 04/03/2015 [facility] Systolic (mm Hg) 103 04/03/2015 [facility] Diastolic (mm Hg) 64 04/03/2015 [facility] BMI Calculated 28.65 03/25/2015 [facility] Height 172.72 cm 03/25/2015 [facility] Weight 85.455 03/25/2015 [facility] Weight 85.455 03/25/2015 [facility] BMI Calculated 28.65 03/25/2015 [facility] Height 172.72 cm 03/25/2015 [facility] Encounters Location Location Details Encounter Type Encounter Number Reason For Visit Attending Provider ADM Date DC Date Status Source [facility] Inpatient [id number] Pedro Churchill 04/02/2015 04/02/2015 [facility] Outpatient [id number] PEDRO SALCEDO 12/08/2017 [facility] Outpatient [id number] Pedro Salcedo 12/08/2017 12/09/2017 [facility] Out[facility] [id number] PEDRO SALCEDO 12/29/2017 [facility] Outpatient [id number] Pedro Salcedo 12/29/2017 12/30/2017 [facility] Outpatient [id number] KELLEY TODD 02/24/2018 [facility] Outpatient [id number] Kelley Todd 02/24/2018 02/25/2018 [facility] Outpatient [id number] KELLEY TODD 03/24/2018 [facility] Outpatient [id number] KELLEY TODD 03/24/2018 [facility] Outpatient [id number] Kelley Perez 03/24/2018 03/25/2018 [facility] Ambulatory Pre-Reg [id number] 03/24/2018 03/24/2018 [facility] [id number] Kelley Perez 04/13/2018 04/14/2018 DIANNE Romero [facility] Outpatient [id number] Yao Delacruz 04/28/2018 04/29/2018 [facility] Ambulatory Pre-Reg [id number] Kelley Perez 05/18/2018 05/18/2018 [facility] Outpatient [id number] KELLEY PEREZ 05/25/2018 Active [facility] Ambulatory Pre-Reg [id number] Kelley Perez 05/25/2018 05/25/2018 [facility] Outpatient [id number] KELLEY PEREZ 06/02/2018 [facility] Outpatient [id number] Kelley Perez 06/02/2018 06/03/2018 [facility] Outpatient [id number] KELLEY PEREZ 06/16/2018 [facility] Outpatient [id number] Kelley Perez 06/16/2018 06/17/2018 [facility] Outpatient [id number] KELLEY PEREZ 07/14/2018 [facility] Outpatient [id number] Kelley Perez 07/14/2018 07/15/2018 Medical [facility] Procedures Procedure Code Date Perfomer Comments Source Measurement of post-voiding residual urine and/or bladder capacity by ultrasound, non-imaging 76052 07/14/2018 [facility] Cystourethroscopy (separate procedure) 65963 03/24/2018 [facility] Hip<sup>1</sup> [id number] rt hip 2015 [facility], DIANNE Romero,[facility] Procedure on prostate<sup>2</sup> [id number] [facility], DIANNE Romero,[facility] Assessment and Plan Assessment and Plan Date Source Extracted from:Title: Clinical Document Author: Pedro Churchill MD Date: [...] is independent for discharge home. Reviewing the patients laboratory work, including complete blood count and [...] office with any questions or concerns at [phone]. Pedro Churchill MD, FAAOS Extracted from:Title: Clinical Document Author: Desi Bernard PA-C Date: [...] operative medications: celebrex, norco, aspirin and gabapentin 04/02/2015 [facility] Plan of Care No Data Provided for This Section Social History Social History Date Source Social History TypeResponse Substance Abuse Use: None. Sexual Sexually active: Yes. Alcohol Never Smoking Status Former smoker; Type: Cigarettes; Exposure to Tobacco Smoke None; Cigarette Smoking Last 365 Days No; Reg Smoking Cessation Counseling No entered on: 07/14/18 12/08/2017 [facility] Social History TypeResponse Substance Abuse Use: None. Sexual Sexually active: Yes. Alcohol Never Smoking Status Former smoker; Type: Cigarettes; Exposure to Tobacco Smoke None; Cigarette Smoking Last 365 Days No; Reg Smoking Cessation Counseling No entered on: 07/14/18 12/08/2017 [facility] Social History TypeResponse Substance Abuse Use: None. Sexual Sexually active: Yes. Alcohol Never Smoking Status Former smoker; Type: Cigarettes; Exposure to Tobacco Smoke None; Cigarette Smoking Last 365 Days No; Reg Smoking Cessation Counseling No entered on: 07/14/18 12/08/2017 DIANNE Romero Family History No Data Provided for This Section Advance Directives No Data Provided for This Section Functional Status No Data Provided for This Section
--- OUTSIDE RECORDS SUMMARY | 2019-04-08 09:16 | XMS REPORT | Summary of Care ---
Author Author [facility] Address Unknown Phone Unavailable Encounter VAHID Raza(ASHWINI) [id number] Date(s): 06/16/18 - 06/16/18 [facility] 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 Allergies, Adverse Reactions, Alerts No Known Medication Allergies Medications tamsulosin 0.4 mg oral capsule 0.4 mg=1 cap, PO, Daily, # 30 cap, 11 Refill(s), [id number] Start Date: 06/16/18 Stop Date: 06/11/19 Status: Ordered Results No data available for this section Immunizations No data available for this section Procedures Procedure Date Related Diagnosis Body Site Status Measurement of post-voiding residual urine 06/16/18 Completed and/or bladder capacity by ultrasound, non-imaging Hip1 Completed Procedure on prostate2 Completed 1rt [...]
--- OUTSIDE RECORDS SUMMARY | 2019-04-08 09:16 | XMS REPORT | Summary of Care ---
Author Author [facility] Urology [facility] Organization [facility] Address Unknown Phone Unavailable Encounter HQ Ry(FIN) [id number] Date(s): 06/02/18 - 06/02/18 [facility] [address] [place], [place] [id number]- Discharge Disposition: Home or Self Care Attending [...]
--- OUTSIDE RECORDS SUMMARY | 2019-04-08 09:16 | XMS REPORT | Summary of Care ---
Author Author [facility] Address Unknown Phone Unavailable Encounter VAHID Raza(FIN) [id number] Date(s): 07/14/18 - 07/14/[address] [facility] 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 Allergies, Adverse Reactions, Alerts No Known Medication Allergies Medications No Known Medications Results Most recent to 1 2 oldest [Reference Range]: POC UA Bili Negative Negative [Negative] *NA* *NA* (07/14/18 4:40 PM) (07/14/18 4:37 PM) POC UA Bld Negative Moderate [Negative] *NA* *ABN* (07/14/18 4:40 PM) (07/14/18 4:37 PM) POC UA Color Yellow Yellow [Yellow] *NA* *NA* (07/14/18 4:40 PM) (07/14/18 4:37 PM) POC UA Glu [Negative Negative mg/dL Negative mg/dL mg/dL] *NA* *NA* (07/14/18 4:40 PM) (07/14/18 4:37 PM) POC UA Ket [Negative Negative mg/dL Negative mg/dL mg/dL] *NA* *NA* (07/14/18 4:40 PM) (07/14/18 4:37 PM) POC UA LeukEst Negative Small [Negative] *NA* *ABN* (07/14/18 4:40 PM) (07/14/18 4:37 PM) POC UA Nit Negative Negative [Negative] *NA* *NA* (07/14/18 4:40 PM) (07/14/18 4:37 PM) POC UA pH [5.0-8.0] 5.5 5.0 (07/14/18 4:40 PM) (07/14/18 4:37 PM) POC UA Prot Negative mg/dL Negative mg/dL [Negative mg/dL] *NA* *NA* (07/14/18 4:40 PM) (07/14/18 4:37 PM) POC UA SG [<=1.030] 1.025 1.010 (07/14/18 4:40 PM) (07/14/18 4:37 PM) POC UA Turbidity Clear Clear [Clear] *NA* *NA* (07/14/18 4:40 PM) (07/14/18 4:37 PM) POC UA Uro [0.1-1.0 0.2 EU/dL 0.2 EU/dL EU/dL] (07/14/18 4:40 PM) (07/14/18 4:37 PM) Immunizations No data available for this section Procedures Procedure Date Related Diagnosis Body Site Status Measurement of post-voiding residual urine 07/14/18 Completed and/or bladder capacity by ultrasound, non-imaging [...]
== END 2019-04-08 10:00 | disposition home or self-care (01) ==
LOC: ER 09:12
DX: R68.83 Chills (without fever) (principal)
CPT/HCPCS: 99282

== ENCOUNTER → 2022-05-18 | Day surgery (SDC) | payer BC, OTHER ==
[~2022-05-18] MED LIST changes: -FENTANYL CITRATE/PF 100MCG/2 ML INJ ONE; -METOCLOPRAMIDE HCL 10 MG/2ML VIAL ONE; -PROPOFOL IV EMULSION 10 MG/ML 50 ML VIAL ONE
[2022-05-18 14:15] VITALS: BP 160/90
== END | disposition home or self-care (01) ==
LOC: OR 11:31
PROVIDERS: ATTEND Internal Medicine Gastroenterology
DX: Z12.11 Encounter for screening for malignant neoplasm of colon (principal); D13.2 Benign neoplasm of duodenum; K29.70 Gastritis, unspecified, without bleeding; K31.1 Adult hypertrophic pyloric stenosis; K22.2 Esophageal obstruction; K20.90 Esophagitis, unspecified without bleeding; K44.9 Diaphragmatic hernia without obstruction or gangrene; K31.89 Other diseases of stomach and duodenum; K64.8 Other hemorrhoids; Z71.3 Dietary counseling and surveillance; Z71.89 Other specified counseling; Z01.810 Encounter for preprocedural cardiovascular examination; Z68.28 Body mass index [BMI] 28.0-28.9, adult; Z80.0 Family history of malignant neoplasm of digestive organs
CPT/HCPCS: 43239; 43450; 45378; 93005; C9113; J1980; J2250; J2704